=== PATIENT | male | born 1945 | race Caucasian/White ===

== ENCOUNTER 2017-09-29 12:58 | Inpatient (IN) | payer MEDICARE, BC ==
[2017-09-29 13:32] LABS: BASOPHILS 0.5 % (0-2); EOSINOPHILS 6.1 % (0-7); HEMATOCRIT 35.8 % (42.0-54.0); HEMOGLOBIN 11.3 g/dL (13.5-17.5); IMMATURE GRANULOCYTES 0.2 % (0-5); LYMPHOCYTES 19.7 % (15-50); MCH 22.9 pg (26.0-34.0); MCHC 31.6 g/dL (31.0-37.0); MCV 72.5 fL (80.0-100.0); MEAN PLATELET VOLUME 10.7 fL (7.4-10.4); NEUTROPHILS 63.5 % (40-80); RBC 4.94 10x6/uL (4.20-6.10); RDW 17.6 % (11.5-14.5); WBC 9.3 10x3/uL (4.8-10.8)
[2017-09-29 13:42] LABS: APPEARANCE CLOUDY (CLEAR); BILIRUBIN NEGATIVE (NEGATIVE); COLOR YELLOW (YELLOW); GLUCOSE 50 mg/dL (NEGATIVE); KETONE SMALL mg/dL (NEGATIVE); NITRITE NEGATIVE (NEGATIVE); PROTEIN NEGATIVE (NEGATIVE)
[2017-09-29 13:43] LABS: AMORPHOUS SEDIMENT >1+ /lpf (NONE SEEN); BACTERIA MODERATE /hpf (NONE SEEN); EPITHELIAL CELLS OCC /hpf (0-5); GRANULAR CAST OCC /lpf (NONE SEEN); MUCUS <1+ /lpf (NONE SEEN); WHITE CELLS - URINE 0-5 /hpf (0-5)
[2017-09-29 14:01] LABS: PLATELET COUNT 274 10x3/uL (130-400)
[2017-09-29 14:10] LABS: ALBUMIN 3.6 g/dL (3.4-5.0); ALKALINE PHOSPHATASE 149 U/L (46-116); ALT (SGPT) 26 U/L (10-68); BILIRUBIN - TOTAL 0.17 mg/dL (0.2-1.3); CALC OSMOLALITY 275 mosm/kg (275-300); CALCIUM 9.1 mg/dL (8.5-10.1); CARBON DIOXIDE 25.5 mmol/L (21.0-32.0); CHLORIDE - SERUM 101 mmol/L (98-107); CREATININE - SERUM 0.8 mg/dL (0.6-1.3); GLUCOSE 213 mg/dL (74-106); POTASSIUM - SERUM 4.2 mmol/L (3.5-5.1); SODIUM 136 mmol/L (136-145); UREA NITROGEN 7 mg/dL (7-18); eGFR NON AFRICAN AMERICAN > 90 mL/min (90-120)
--- NOTE | 2017-09-29 16:00 | NUR ---
RECEIVED FROM [facility] ER FROM [facility]. DX: ALTERED MENTAL STATUS WITH INCREASED BEHAVIORS, TRYING TO HIT STAFF WITH CANE. HE IS HALLUCINATING AND DELUSIONAL. HE THINKS HIS JUST HAD A BABY AND HE IS COMING TO HOSPITAL TO PICK HER UP. HE AMBULATES WITH THE ASSISTANCE OF A WALKER. WILL CONTINUE TO MONITOR.
[2017-09-29 16:14] LABS: HEMOGLOBIN A1C 6.6 % (4.8-6.0)
[2017-09-29 16:21] LABS: CHOL - HDL RATIO 1.9 ratio (2.3-4.9); LDL-HDL RATIO 0.7 ratio (1.5-3.5)
[2017-09-29] MEDS ORDERED: BAYER CHEWABLE81 MG PO (18:40)
[2017-09-29] MEDS ORDERED: XALATAN 0.0052.5 ML EACH EYE (18:41)
[2017-09-29] MEDS ORDERED: LIPITOR40 MG PO (18:45)
[2017-09-29] MEDS ORDERED: OMEPRAZOLE40 MG (18:47)
[2017-09-29] MEDS ORDERED: VITAMIN B-122500 MCG PO (18:49)
[2017-09-29] MEDS ORDERED: LISINOPRIL-HCTZ1 TA2 PO (18:50)
[2017-09-29] MEDS ORDERED: ZYRTEC10 MG PO (18:51)
[2017-09-29] MEDS ORDERED: COLACE100 MG PO (18:52)
[2017-09-29] MEDS ORDERED: COSOPT EYE DROPS5 ML EACH EYE (18:54)
[2017-09-29] MEDS ORDERED: GLUCOPHAGE500 MG PO (18:57)
[2017-09-29] MEDS ORDERED: METFORMIN HCL500 M1 PO (18:57)
[2017-09-29] MEDS ORDERED: LASIX40 MG PO (18:59)
[2017-09-29] MEDS ORDERED: ACETAMINOPHEN325 MG PO (19:00)
[2017-09-29 20:22] VITALS: BP 141/70
--- NOTE | 2017-09-29 21:00 | NUR ---
RECEIVED IN HALLWAY. WALKING AROUND UNIT. EXIT SEEKING. CALM AND COOPERATIVE WITH VITALS. ORIENTED TO UNIT. REINFORCE FALLS SAFTEY.
--- NOTE | 2017-09-29 22:10 | NUR ---
PATIENT REFUSING ADMIT ASSESSMENT AND HISTORY.
--- NOTE | 2017-09-30 06:09 | NUR ---
PATIENT CONTINUES TO REFUSE ADMIT ASSESSMENT AND HISTORY. TELLING STAFF HE IS GOING TO BUST OUT OF THIS PLACE.
[2017-09-30 08:00] VITALS: BP 154/84
[2017-09-30 11:40] VITALS: BP 154/84
--- NOTE | 2017-09-30 12:24 | NUR ---
PT REFUSED ASSESSMENT ON PREVIOUS NIGHT BUT HE DID ALLOW ME TO COMPLETE IT TODAY. ORIENTED TO PERSON ONLY. PT THINKS THAT HE IS IN REHAB AT THIS TIME. PT HAS NOT MENTIONED HIS " HAVING A BABY" SINCE THIS MORNING DURING MY ASSESSMENT. NO AGGRESSION NOTED. PT DOES PACE AROUND THE DAYROOM AND ISOLATED AWAY FROM THE OTHER PTS. ENCOURAGED PT TO ATTEND GROUPS AND EXPRESS NEEDS AND FEELINGS. PT USES A WALKER FOR AMBULATION. FALL PRECAUTIONS MAINTAINED BUT HE REFUSES TO SIT WITH SNEHA ALARM. EDUCATED ON IMPORTANCE. WILL CONTINUE TO MONITOR AND CONTINUE WITH PLAN OF CARE.
[2017-09-30 20:05] VITALS: BP 159/78
--- NOTE | 2017-09-30 20:45 | NUR ---
RECEIVED IN HALLWAY. WALKING ABOUT UNIT. ISOLATED FROM HIS PEERS AND STAFF. CALM AND COOPERATIVE WITH CARE AND ASSESSMENTS. NO SIGNS OF HALLUCINATIONS. NO SIGNS OF AGGRESSION. REDIRECT AND REOREINT NEEDED. LAYING IN BED EYS OPEN WITH MED NURSE IN HIS ROOM AT THIS TIME. CONTINUE PLAN OF CARE
--- NOTE | 2017-10-01 08:07 | PSY ---
PATIENT NAME:AMBAR FLORES MEDICAL RECORD: [id number] : 49 LOCATION:[facility] ADMISSION DATE: 09/29/17 ACCOUNT: [id number] PSYCHIATRIC EVALUATION DATE OF EVALUATION: 09/30/17 IDENTIFYING DATA: This is the first [facility] admission for this 72-year-old unmarried white male. HISTORY OF PRESENT ILLNESS: This patient was referred from [facility]. His behavior had taken a marked change for the worse and he had become increasingly agitated with paranoid symptoms and aggressiveness. He had been trying to strike staff members with his cane. He was observed to be experiencing hallucinations, most likely auditory. He also was under the delusion that his had just 2 small children. In fact, his in 2007. Because of marked change in mental status as well as aggressiveness and assaultiveness, the patient was admitted. PAST PSYCHIATRIC HISTORY: The patient does have past history of alcohol use. Beyond this, there is no previous documented psychiatric history. PAST MEDICAL HISTORY: Significant for type 2 diabetes, hypertension, GERD, and hypercholesterolemia. The patient does have bilateral dependent edema. The patient also takes Lasix 40 mg daily for that. Other ongoing medications include Lipitor, Zestoretic, cetirizine, Colace, and Glucophage. ALLERGIES: None listed. FAMILY HISTORY: Noncontributory. SOCIAL HISTORY: The patient is a [place] . As mentioned, his in 2007 and a son in 2015. The patient does have a history of alcohol abuse. He formerly worked at the [employer]. MENTAL STATUS: On exam, the patient is seated in a wheelchair. He is confused. He does realize that he is in some hospital somewhere, but he is not sure where. Remote recall shows significant deficits and confusion. Intermediate and short-term recall are severely impaired. Thought content is positive for active delusional ideation. Mood is somewhat irritable. Affect is quite brittle. Speech shows some tangentiality. 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 AXIS II: No diagnosis. AXIS III: Hypertension, hypercholesterolemia, type 2 diabetes, and GERD. AXIS IV: Severe. AXIS V: 36. PLAN: 1. The patient is admitted for further medical and psychiatric workup. 2. Diet and activities as tolerated. 3. Daily supportive therapy. TRANSINT:[id number] Voice Confirmation ID: [id number] DOCUMENT ID: [id number] EVELYN CALDWELL III, MD at 0807 CC: [id number] DICTATION DATE: 09/30/17 1142 TANK CAR INSPECTOR: 09/30/17 1230 ADM IN [address] [place] [address]
--- NOTE | 2017-10-01 11:04 | NUR ---
ORIENTED TO PERSON ONLY. PT REQUIRES FREQUENT REDIRECTION TO CURRENT ENVIRONMENT. NO AGGRESSION NOTED. MEDICAITONS GIVEN ORDERED. FALL PRECAUTIONS MAINTAINED. WILL CONTINUE TO MONITOR AND CONTINUE WITH PLAN OF CARE.
[2017-10-01 11:59] VITALS: BP 108/55
--- NOTE | 2017-10-01 19:39 | NUR ---
RECEIVED IN DINING ROOM. SITTING ALONE AT TABLE. PATIENT ISOLATES HIMSELF FROM EVERYONE ELSE. CALM AND COOPERATIVE WITH CARE AND ASSESSMENT. NO SIGNS OF HALLUCINATIONS. NO SIGNS OF AGGRESSION. ENCOURAGE TO EXPRESS NEEDS. PATIENT CONTINUES TO SIT IN DINING ROOM AT TABLE. CONTINUE PLAN OF CARE.
[2017-10-01 22:00] VITALS: BP 148/76
--- NOTE | 2017-10-01 23:04 | NUR ---
PATIENT REFUSED TO COME TO HIS ROOM FROM DINING ROOM. STATED THAT THE PRESIDENT AND HIS WERE COMING TO GET HIM AND WERE ALMOST HERE. REDIRECTED AND REORIENTED PATIENT. PATIENT WAS RESISTIVE TO REDIRECTION AT FIRST BUT AFTER CONTINUED REDIRECTION PATIENT WENT TO HIS ROOM AND LAYED IN BED. STATED HE WILL WAIT FOR THE PRESIDENT AND HIS WHILE HE LAYS IN BED. PATIENT RESTING IN BED WITH EYES CLOSED AT THIS TIME. CONTINUE PLAN OF CARE.
--- NOTE | 2017-10-02 07:46 | NUR ---
RESTING IN BED WITH EYES OPEN. CALM AND COOPERATIVE WITH CARE AND ASSESSMENTS. NO SIGNS OF AGGRESSION. NO SIGNS OF HALLUCINATIONS. NO DELUSIONAL STATEMENTS MADE THIS AM. ISOLATING. CALM AND COOPERATIVE WITH CARE AND ASSESSMENTS. NO SIGNS OF AGGRESSION. CONTINUE TO SIT QUIETLY IN BEDROOM. CONTINUE PLAN OF CARE
--- NOTE | 2017-10-02 10:07 | PN ---
PATIENT:AMBAR FLORES MEDICAL RECORD: [id number] LOCATION:[facility] ADMISSION DATE: 09/29/17 PROGRESS NOTE DATE OF SERVICE: 10/01/2017 SUBJECTIVE: No new complaint noted. OBJECTIVE: The patient remains oriented only to person. He is quite confused. He believes that he is in [place]. Sleep is poor. On exam, mood is slightly irritable. Affect is shallow. Speech is tangential. Exhibits delusional ideation due to sensorium deficits. Sensorium is unchanged. ASSESSMENT: No change in diagnosis. PLAN: 1. Continue current medications. 2. Continue supportive therapy. TRANSINT:[id number] Voice Confirmation ID: [id number] DOCUMENT ID: [id number] EVELYN CALDWELL III, MD at 1007 CC: [id number] DICTATION DATE: 10/01/17 1147 FOREST BOTANY INSTRUCTOR: 10/01/17 1203 ADM IN [address] [place] [address]
[2017-10-02 10:47] VITALS: BP 140/72
[2017-10-02 19:30] VITALS: BP 147/85
--- NOTE | 2017-10-03 05:03 | NUR ---
B) Patient alert and oriented to self, delusional at times, grandiouse at times I) Administered scheduled medications, monitored for safety R) medication compliant, resting quietly in bed P) Continue plan of care
[2017-10-03 08:00] VITALS: BP 126/69
--- NOTE | 2017-10-03 08:05 | NUR ---
B) PATIENT IS EXTREMELY CONFUSED. HE IS DELUSIONAL, HE BELIEVES HE IS REHAB AND HE IS LOOKING FOR HIS . HAD TO ASSIST AND DIRECT PATIENT TO WASH HIS FACE AND COMB HIS HAIR, HE SAID "I DON'T NORMALLY DO THAT" PATIENT USES A WALKER TO AMBULATE. I) PROVIDE PRESCRIBED MEDS. R) PATIENT DID LOOK AROUND TO TRY TO FIND HIS . HE IS NOT . P) CONTINUE POC.
[2017-10-03 19:28] VITALS: BP 102/68
--- NOTE | 2017-10-04 03:16 | NUR ---
B) Patient is alert and oriented to self and being in a hospital, very confused and delusional, thinks he has and small children I) Administered scheduled medication, monitored for safety R) Medication compliant, keeps to himself away from other patients, P) Continue plan of care.
[2017-10-04 07:00] VITALS: BP 122/74
--- NOTE | 2017-10-04 16:04 | NUR ---
ORIENTED TO SELF AND HOSPITAL ONLY.WAS HESITANT ABOUT LETTING THIS NURSE LISTEN TO HIS CHEST,STATED"ITs OK SEVERAL TIMES BEFORE HE LET ME.AMBULATES WITH WALKER.COMPLIANT WITH MEDS.WILL CONTINUE WITH PLAN OF CARE.MONITOR FOR CHANGES AND SAFETY.
--- NOTE | 2017-10-04 20:32 | NUR ---
RECEIVED IN HALLWAY STANDING AT NURSES STATION. SOCIALIZING WITH THIS NURSE. CALM AND COOPERATIVE WITH CARE AND ASSESSMENTS BUT REFUSED B/P. NO SIGNS OF HALLUCINATIONS. NO SIGNS OF AGGRESSION. ENCOURAGE TO TAKE PM MEDS. REFUSED ALL PM MEDS. REDIRECTED AND REORIENTED. CONTINUED TO STATE HE IS TAKING TOO MANY MEDS AND REFUSES TO TAKE PM MEDS. RESTING IN BED EYES OPEN AT THIS TIME. CONTINUE PLAN OF CARE.
[2017-10-05 08:17] VITALS: BP 117/71
--- NOTE | 2017-10-05 09:39 | PN ---
PATIENT:AMBAR FLORES MEDICAL RECORD: [id number] LOCATION:[facility] ADMISSION DATE: 09/29/17 PROGRESS NOTE DATE OF SERVICE: 10/02/2017 SUBJECTIVE: No new complaint. OBJECTIVE: Staff report the patient is doing well. He has not shown any behavioral problems. He remains quite confused. He is disoriented as to place as well as to time. He is participating more in group activities. On exam, mood is euthymic. Affect bland and constricted. Speech is terse. Content of thought is positive for recent delusional ideation. Sensorium unchanged. ASSESSMENT: No change in diagnosis. PLAN: 1. Maintain current medication. 2. Continue supportive therapy. TRANSINT:[id number] Voice Confirmation ID: [id number] DOCUMENT ID: [id number] EVELYN CALDWELL III, MD at 0939 CC: [id number] DICTATION DATE: 10/02/17 111 CULTURIST: 10/02/17 1132 ADM IN [address] [place] [address]
--- NOTE | 2017-10-05 11:30 | NUR ---
ORIENTED TO SELF AND HOSPITAL ONLY. COOPERATIVE WITH ASSESSMENT AND CARE. COMPLIANT WITH TAKING PRESCRIBED MEDICATIONS. AMBULATES WITH A WALKER. MONITOR FOR SAFETY AND CHANGES. CONTINUE PLAN OF CARE.
[2017-10-05 19:21] VITALS: BP 144/72
--- NOTE | 2017-10-05 19:42 | NUR ---
RECEIVED IN BEDROOM. LAYING ON BED WITH EYES OPEN. CALM AND COOPERATIVE WITH CARE AND ASSESSMENTS. NO SIGNS OF HALLUCINATIONS. NO SIGNS OF AGGRESSION. REDIRECT AND REORIENT NEEDED. ENCOURAGE TO EXPRESS NEEDS. CONTINUES TO REST QUIETLY IN HIS BEDROOM. CONTINUE PLAN OF CARE
--- NOTE | 2017-10-06 06:06 | PN ---
PATIENT:AMBAR FLORES MEDICAL RECORD: [id number] LOCATION:[facility] ADMISSION DATE: 09/29/17 PROGRESS NOTE DATE OF SERVICE: 10/05/2017 SUBJECTIVE: No new complaint. OBJECTIVE: The patient has done well over the weekend and no new problems have surfaced. On exam, mood is euthymic. Affect is fairly bland. Speech is tangential. Content of thought is negative for overt psychosis. Sensorium unchanged. ASSESSMENT: No change in diagnosis. PLAN: 1. Continue current medications. 2. Continue supportive therapy. TRANSINT:[id number] Voice Confirmation ID: [id number] DOCUMENT ID: [id number] EVELYN CALDWELL III, MD at 0606 CC: [id number] DICTATION DATE: 10/05/17 1308 MERCHANT PATROLLER: 10/05/17 1322 ADM IN [facility] [address] [place] [address]
--- NOTE | 2017-10-06 08:34 | NUR ---
SARA SPOKE WITH PT'S SON BRAEDEN ABOUT HIS UPCOMING DISCHARGE TOMORROW TO [place] AND STATED THEY MIGHT WANT TO MOVE HIM TO THE MEMORY CARE UNIT DUE TO HIS DISEASE PROGRESSION. BRAEDEN VERBALIZED UNDERSTANDING OF PT'S CONDITION AND DISCUSSION.
[2017-10-06] MEDS ORDERED: HCTZ25 MG PO (10:48)
[2017-10-06] MEDS ORDERED: LISINOPRIL10 MG PO (10:48)
[2017-10-06] MEDS ORDERED: VITAMIN D5000 UNIT PO (10:50)
[2017-10-06 11:08] VITALS: BP 143/74
--- NOTE | 2017-10-06 13:48 | NUR ---
Nutrition Follow Up: Chart reviewed. Pt is eating 58% meal avg on a regular ISRAEL diet. +BM 10/05/17. Labs reviewed. Meds noted including Lasix. Rec continue current diet. RD following.
[2017-10-06 20:06] VITALS: BP 121/65
--- NOTE | 2017-10-06 21:34 | NUR ---
RECEIVED IN BEDROOM. RESTING IN BED WITH EYES CLOSED. RESPONDS TO VOICE. COOPERATIVE WITH VITALS AND ASSESSMENTS BUT REFUSED ALL PM MEDS. STATING "I AMD DOING FINE WITH THE MEDS I AM TAKING. I AM NOT TAKING ANYMORE MEDS." CONTINUES TO REFUSE A SHOWER. REDIRECT AND REORIENT. REINFORCE THE NEED TO TAKE MEDS ORDERED AND TO TAKE A SHOWER. RESTING IN BED EYES CLOSED AT THIS TIME. CONTINUE PLAN OF CARE
--- NOTE | 2017-10-07 05:14 | PN ---
PATIENT:AMBAR FLORES MEDICAL RECORD: [id number] LOCATION:[facility] ADMISSION DATE: 09/29/17 PROGRESS NOTE DATE OF SERVICE: 10/06/2017 SUBJECTIVE: No new complaint. OBJECTIVE: The patient continues to do well. No further evidence of suicidality or agitation. On exam, mood is euthymic, affect is pleasant. Speech is somewhat terse. Content of thought is negative for overt psychosis. Sensorium unchanged. ASSESSMENT: No change in diagnosis. PLAN: 1. Continue all current medications. 2. Anticipate discharge tomorrow. TRANSINT:[id number] Voice Confirmation ID: [id number] DOCUMENT ID: [id number] EVELYN CALDWELL III, MD at 0514 CC: [id number] DICTATION DATE: 10/06/17 1039 HOSPICE CLINICAL MANAGER: 10/06/17 1120 ADM IN [address] [place] [address]
[2017-10-07 08:00] VITALS: BP 115/72
--- NOTE | 2017-10-07 11:00 | NUR ---
CALM AND COOPERATIVE WITH CARE AND ASSESSMENT. PRESCRIBED MEDICATIONS GIVEN AND COMPLIANT WITH TAKING. FALL PRECAUTIONS MAINTAINED. WILL CONTINUE TO MONITOR. PATIENT IS SET TO DISCHARGE TODAY. ALL PAPERWORK REVIEWED AND FAXED TO [facility].
--- NOTE | 2017-10-08 08:22 | DS ---
PATIENT:AMBAR FLORES :49 MEDICAL RECORD: [id number] DISCHARGE SUMMARY ADMISSION DATE: 09/29/17 DISCHARGE DATE: 10/07/17 DATE OF ADMISSION: 09/29/2017 DATE OF DISCHARGE: 10/07/2017 HISTORY OF PRESENT ILLNESS: First Longterm admission for this 72-year-old unmarried white male. He was transferred from [facility]. He had been exhibiting delusional ideation and aggressiveness. He had been upset with staff because he claimed that his was about to have a baby. His had actually almost 10 years ago. Because of worsening cognitive status and agitation, the patient was admitted. For further details, please see previously dictated history. COURSE IN THE HOSPITAL: The patient was seen in consultation by Dr. Traylor. He noted the presence of hypertension, gastroesophageal reflux disease, vitamin D deficiency, glaucoma, vitamin B12 deficiency, and anemia. From a medication standpoint, the patient was treated very conservatively. It was elected not to put him on routine antipsychotics. He responded well to this approach and showed a good resolution of his agitation and delusional ideation. He also responded well to p.r.n. Ativan. By the time of discharge, the patient was felt to be stable and ready for transfer to the memory care unit at [place]. FINAL DIAGNOSES: AXIS I: Vascular dementia with psychotic features - resolving. AXIS II: No diagnosis. AXIS III: Hypertension, hypercholesterolemia, type 2 diabetes, gastroesophageal reflux disease. AXIS IV: Moderate. AXIS V: 44. PLAN: 1. The patient is discharged on current medications. 2. Diet and activities as tolerated. 3. Follow up with primary care physician. TRANSINT:[id number] Voice Confirmation ID: [id number] DOCUMENT ID: [id number] EVELYN CALDWELL III, MD at 0822 CC: [id number] DICTATION DATE: 10/07/17 1121 VALUE ENGINEER: 10/07/17 1352 DIS IN 10/07/17 [id number] [place] [address]
== END 2017-10-07 18:07 | disposition home or self-care (01) | DRG 57 ==
LOC: EDBD 12:58 → D.ER 12:58 → D.PSYCH 15:29
PROVIDERS: Emergency Medicine; ADMIT Psychiatry & Neurology Psychiatry
DX: G30.9 Alzheimer's disease, unspecified (principal); F02.81 Dementia in other diseases classified elsewhere, unspecified severity, with behavioral disturbance; F01.51 Vascular dementia, unspecified severity, with behavioral disturbance; I10 Essential (primary) hypertension; E78.00 Pure hypercholesterolemia, unspecified; E78.5 Hyperlipidemia, unspecified; D64.9 Anemia, unspecified; E11.9 Type 2 diabetes mellitus without complications; K21.9 Gastro-esophageal reflux disease without esophagitis; E53.8 Deficiency of other specified B group vitamins; E55.9 Vitamin D deficiency, unspecified; H40.9 Unspecified glaucoma; I25.10 Atherosclerotic heart disease of native coronary artery without angina pectoris; Z95.1 Presence of aortocoronary bypass graft

== ENCOUNTER 2017-11-06 18:09 | Inpatient (IN) | payer MEDICARE, BC ==
[~2017-11-06] VITALS: Ht 165.1 cm; Wt 88.2 kg
--- NOTE | ~2017-11-06 | PN ---
PATIENT:AMBAR FLORES MEDICAL RECORD: [id number] LOCATION:[facility] ADMISSION DATE: 11/06/17 PROGRESS NOTE DATE OF SERVICE: 11/14/2017 SUBJECTIVE: The patient's case was discussed with staff. He has no new complaint. OBJECTIVE: The patient is in good behavioral control with limited insight about his condition. He tolerates his medicines well. He continues to be delusional and he is talking to people not present. The patient continues to not eat adequately. Efforts to encourage him to do so are limited. I believe he is not eating because he is delusional and in fact he does say that president, Bonjulisa told him not to eat his food. ASSESSMENT: No change in diagnoses. PLAN: The patient will be maintained on his current antipsychotic medication, which I may need to increase in a day or two. It really has not had an opportunity to do much. I am also going to start him on Namenda for its memory enhancing properties. TRANSINT:[id number] Voice Confirmation ID: [id number] DOCUMENT ID: [id number] WYATT VELASQUEZ MD at 1105 CC: [id number] DICTATION DATE: 11/14/17 0952 WASTE CHOPPER: 11/14/17 1216 ADM IN [address] [place] [address]
--- NOTE | ~2017-11-06 | PN ---
PATIENT:AMBAR FLORES MEDICAL RECORD: [id number] LOCATION:[facility] ADMISSION DATE: 11/06/17 PROGRESS NOTE DATE OF SERVICE: 11/15/2017 SUBJECTIVE: The patient's case was discussed with staff. He has no new complaint. OBJECTIVE: The patient is in good behavioral control with poor insight about his condition. He tolerates his medicines well. ASSESSMENT: No change in diagnoses. PLAN: The patient will be maintained on current medications. He continues to not eat very well. I have reviewed his current medications and he is taking Megace, it just has not been effective or has not been effective yet. TRANSINT:[id number] Voice Confirmation ID: [id number] DOCUMENT ID: [id number] WYATT VELASQUEZ MD at 1156 CC: [id number] DICTATION DATE: 11/15/17 1204 ELECTRIC ORGAN CHECKER: 11/15/17 1236 ADM IN [facility] [address] [place] [address]
--- NOTE | ~2017-11-06 | PN ---
PATIENT:AMBAR FLORES MEDICAL RECORD: [id number] LOCATION:[facility] ADMISSION DATE: 11/06/17 PROGRESS NOTE DATE OF SERVICE: 11/12/2017 SUBJECTIVE: No new complaint. OBJECTIVE: The patient remains actively psychotic. He is delusional. Speech is rambling. He has been intermittently noncompliant with medication. PHYSICAL EXAMINATION: On exam, mood is euthymic. Affect is very distant and peculiar. Speech is rambling. Content of thought is strongly positive for delusional ideation. Sensorium shows no change. ASSESSMENT: No change in diagnosis. PLAN: 1. We will continue current medications. 2. Continue supportive therapy. TRANSINT:[id number] Voice Confirmation ID: [id number] DOCUMENT ID: [id number] EVELYN CALDWELL III, MD at 0826 CC: [id number] DICTATION DATE: 11/12/17 1132 TRAIN OPERATOR: 11/12/17 1154 ADM IN [facility] [address] [place] [address]
--- NOTE | ~2017-11-06 | PN ---
PATIENT:AMBAR FLORES MEDICAL RECORD: [id number] LOCATION:[facility] ADMISSION DATE: 11/06/17 PROGRESS NOTE DATE OF SERVICE: 11/21/2017 SUBJECTIVE: The patient's case was discussed with staff. He has no new complaint. OBJECTIVE: The patient continues to talk to himself, but he is denying any psychotic symptoms. He has severe impairment of his short-term memory and at least moderate impairment of his long-term memory. ASSESSMENT: No change in diagnoses. PLAN: The patient's Trilafon was increased yesterday. I plan to keep it at the same dose today. His long-term prognosis is guarded. TRANSINT:[id number] Voice Confirmation ID: [id number] DOCUMENT ID: [id number] WYATT VELASQUEZ MD at 1101 CC: [id number] DICTATION DATE: 11/21/17 1211 GLASS RIBBON MACHINE OPERATOR ASSISTANT: 11/21/17 1236 ADM IN [address] [place] [id number]
--- NOTE | ~2017-11-06 | PN ---
PATIENT:AMBAR FLORES MEDICAL RECORD: [id number] LOCATION:[facility] ADMISSION DATE: 11/06/17 PROGRESS NOTE DATE OF SERVICE: 11/10/2017 SUBJECTIVE: No new complaint is noted. OBJECTIVE: The patient continues to be very delusional. He states that he is expecting Pedro Gates to come pick him up in his [place] today. On exam, the patient's mood is elevated. Affect is expansive. Speech is pressured and rambling. Content of thought is positive for both auditory hallucinations and grandiose delusions. Sensorium is unchanged. ASSESSMENT: No change in diagnosis. PLAN: 1. The patient has been started on neuroleptics. We will continue these. 2. Continue other medications and supportive therapy. TRANSINT:[id number] Voice Confirmation ID: [id number] DOCUMENT ID: [id number] EVELYN CALDWELL III, MD at 1011 CC: [id number] DICTATION DATE: 11/10/17 1040 PRIVATE WATCHMAN: 11/10/17 1111 ADM IN [facility] [address] [place] [address]
--- NOTE | ~2017-11-06 | PN ---
PATIENT:AMBAR FLORES MEDICAL RECORD: [id number] LOCATION:[facility] ADMISSION DATE: 11/06/17 PROGRESS NOTE DATE OF SERVICE: 11/24/2017 SUBJECTIVE: No new complaint. OBJECTIVE: Over the last week, the patient has shown improvement. He continues to actively hallucinate and frequently appears to be carrying on a conversation with an unseen individual. However, he is much more cooperative, has not been aggressive at all. On exam, the patient is very pleasant. He recalls the examiner. Affect is bland. Speech continues to be somewhat rambling. Content of thought remains positive for active hallucinations, both auditory and probably visual. Sensorium testing reveals the patient is oriented to person and to place, but not as to time. All phases of memory remain affected. ASSESSMENT: No change in diagnosis. PLAN: 1. Continue current medications. 2. Continue supportive therapy. TRANSINT:[id number] Voice Confirmation ID: [id number] DOCUMENT ID: [id number] EVELYN CALDWELL III, MD at 1033 CC: [id number] DICTATION DATE: 11/24/17 1105 DEPALLETIZER OPERATOR: 11/24/17 1128 ADM IN [facility] [address] [place] [address]
--- NOTE | ~2017-11-06 | PN ---
PATIENT:AMBAR FLORES MEDICAL RECORD: [id number] LOCATION:[facility] ADMISSION DATE: 11/06/17 PROGRESS NOTE DATE OF SERVICE: 11/11/2017 SUBJECTIVE: No new complaint. OBJECTIVE: The patient has been showing poor oral intake and will need to be started on Megace. He remains actively psychotic, hallucinating much of the day. Aside from this, he is fairly cooperative. On exam, mood is euthymic, affect is very distant. Speech is tangential. Content of thought is positive for active auditory hallucinations. Sensorium is unchanged. ASSESSMENT: No change in diagnosis. PLAN: 1. Change Geodon to 20 mg b.i.d. 2. Add Megace 40 mg b.i.d. 3. Continue all other medications and supportive therapy. TRANSINT:[id number] Voice Confirmation ID: [id number] DOCUMENT ID: [id number] EVELYN CALDWELL III, MD at 1101 CC: [id number] DICTATION DATE: 11/11/17 1058 CERAMIC TILE INSTALLER: 11/11/17 1145 ADM IN [address] [place] [address]
--- NOTE | ~2017-11-06 | PN ---
PATIENT:AMBAR FLORES MEDICAL RECORD: [id number] LOCATION:[facility] ADMISSION DATE: 11/06/17 PROGRESS NOTE DATE OF SERVICE: 11/13/2017 SUBJECTIVE: The patient's case was discussed with staff. He has no new complaint. OBJECTIVE: The patient is in good behavioral control with poor insight about his condition. He tolerates his medicines well. He is delusional. He believes that the president has told him not to take his medicines or to use his walker. ASSESSMENT: No change in diagnoses. PLAN: Current medicines have been reviewed. I am going to continue him on the Geodon for its antipsychotic effects. His long-term prognosis is guarded. Supportive and educational interventions were made. TRANSINT:[id number] Voice Confirmation ID: [id number] DOCUMENT ID: [id number] WYATT VELASQUEZ MD at 0944 CC: [id number] DICTATION DATE: 11/13/17 1204 RESIDENTIAL INSTALLER: 11/13/17 1241 ADM IN [id number] [place] [address]
--- NOTE | ~2017-11-06 | DS ---
PATIENT:AMBAR FLORES :49 MEDICAL RECORD: [id number] DISCHARGE SUMMARY ADMISSION DATE: 11/06/17 DISCHARGE DATE: 11/27/17 DATE OF ADMISSION: 11/06/2017 DATE OF DISCHARGE: 11/27/2017 HISTORY: Second recent [facility] hospital admission for this 72-year-old white male. The patient had been admitted in September of last year, he had become increasingly paranoid and combative and was experiencing auditory hallucinations. On this admission, the patient had been begun exhibiting visual hallucinations as well. He had exhibited confused and rambling speech and was difficult to redirect. PAST MEDICAL HISTORY: Documented in the initial workup. For further details, see the initial workup. COURSE IN THE HOSPITAL: The patient was seen in consultation with Dr. Traylor. Dr. Traylor noted the presence of vitamin D deficiency, hypertension, glaucoma, constipation and hyperlipidemia as well as past history of coronary artery disease. The patient continued to show fairly significant psychotic symptoms. He had conversations with imaginary people. Accordingly, the patient was started on perphenazine and dosage was stabilized at 2 mg in the morning and 4 mg in the evening. He was maintained on Namenda 5 mg twice a day, Pepcid 20 mg daily, vitamin D supplements, lisinopril 10 mg daily, hydrochlorothiazide 12.5 mg daily, Colace, Gaye, Glucophage 500 mg twice a day, Xalatan eyedrops, and Lipitor 40 mg at bedtime. Through the hospitalization, the patient showed very gradual improvement in his psychotic symptoms. By the time of discharge, he was not as floridly delusional and was returned to [place]. 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 AXIS II: No diagnosis. AXIS III: Hypertension, hypercholesterolemia, type 2 diabetes, GERD. AXIS IV: Moderate. AXIS V: 40. PLAN: 1. The patient is discharged on current medications. 2. Diet and activities as tolerated. 3. Follow up through residential physician. TRANSINT:[id number] Voice Confirmation ID: [id number] DOCUMENT ID: [id number] DISCHARGE SUMMARY REPORT [id number] AMBAR FLORES III, EVELYN Martino MD at 0503 CC: [id number] DICTATION DATE: 11/27/17 113 DIRECTOR OF DIVERSITY AND INCLUSION: 11/27/17 1533 DIS IN 11/27/17 [facility] [address] [place] [address]
--- NOTE | ~2017-11-06 | PN ---
PATIENT:AMBAR FLORES MEDICAL RECORD: [id number] LOCATION:[facility] ADMISSION DATE: 11/06/17 PROGRESS NOTE DATE OF SERVICE: 11/25/2017 SUBJECTIVE: No new complaint. OBJECTIVE: The patient continues to be fairly cooperative with staff. He is able to be redirected. He continues to exhibit florid delusions as before. Placement is pending as [facility] will not take him back. On exam, mood is euthymic. Affect is slightly expansive. Speech is tangential. Content of thought is positive for delusions as noted above. Sensorium unchanged. ASSESSMENT: No change in diagnosis. PLAN: 1. Continue all current medications. 2. Continue supportive therapy. TRANSINT:[id number] Voice Confirmation ID: [id number] DOCUMENT ID: [id number] EVELYN CALDWELL III, MD at 0621 CC: [id number] DICTATION DATE: 11/25/17 1119 INDEPENDENT DISTRIBUTOR: 11/25/17 1152 ADM IN [id number] [place] [address]
--- NOTE | ~2017-11-06 | PN ---
PATIENT:AMBAR FLORES MEDICAL RECORD: [id number] LOCATION:[facility] M[facility] ADMISSION DATE: 11/06/17 PROGRESS NOTE DATE OF SERVICE: 11/09/2017 SUBJECTIVE: No coherent complaint. OBJECTIVE: The patient continues to exhibit auditory hallucinations and rambling speech. He is quite confused. His orientation is limited to self. He is not sleeping well. PHYSICAL EXAMINATION: On exam, the patient's mood is fairly pleasant and affect is bland, but speech is rambling and tangential. Content of thought as noted is positive for auditory hallucinations. The patient frequently talks to unseen people. He is oriented only to person with severe global memory impairment. ASSESSMENT: No change in diagnosis. PLAN: 1. It is possible that his placement may have to be changed considering the severity of his dementia. 2. We will continue current medications for the moment with the exception of perhaps adding a hypnotic. 3. Continue supportive therapy. TRANSINT:[id number] Voice Confirmation ID: [id number] DOCUMENT ID: [id number] EVELYN CALDWELL III, MD at 1019 CC: [id number] DICTATION DATE: 11/09/17 1145 CRYSTAL MOUNTER: 11/09/17 1204 ADM IN [facility] [address] [place] [address]
--- NOTE | ~2017-11-06 | PN ---
PATIENT:AMBAR FLORES MEDICAL RECORD: [id number] LOCATION:[facility] ADMISSION DATE: 11/06/17 PROGRESS NOTE DATE OF SERVICE: 11/19/2017 SUBJECTIVE: The patient's case was discussed with staff. He has no new complaint. OBJECTIVE: The patient is in good behavioral control with limited insight about his condition. He generally tolerates his medicines well. ASSESSMENT: No change in diagnoses. PLAN: Brief supportive and educational interventions were made. The patient is still having some hallucinations, but he is certainly tolerating his medications well and the hallucinations do appear to be better. TRANSINT:[id number] Voice Confirmation ID: [id number] DOCUMENT ID: [id number] WYATT VELASQUEZ MD at 1303 CC: [id number] DICTATION DATE: 11/19/17 1352 SOFT WATER MECHANIC: 11/19/17 1408 ADM IN [facility] [address] [place] [address]
--- NOTE | ~2017-11-06 | PSY ---
PATIENT NAME:AMBAR FLORES MEDICAL RECORD: [id number] : 49 LOCATION:BEATA Cantrell ADMISSION DATE: 11/06/17 ACCOUNT: [id number] PSYCHIATRIC EVALUATION DATE OF EVALUATION: 11/07/17 IDENTIFYING DATA: This is the second recent [facility] admission for this 72-year-old white male. HISTORY OF PRESENT ILLNESS: This patient was admitted just over 1 month ago from [facility]. He had become increasingly paranoid and aggressive and had become agitated and combative with staff members. He was experiencing active auditory hallucinations as well. The patient was treated and showed considerable improvement and sent back to [facility], but returns now with similar symptoms. The patient is extremely confused, exhibits rambling speech, and is difficult to redirect. Because of recurrence and worsening of psychotic symptoms, the patient is admitted. PAST MEDICAL HISTORY: Does have a past history of alcohol use. Also, history of type 2 diabetes, hypertension, GERD, and hypercholesterolemia. ALLERGIES: None listed. FAMILY HISTORY: Noncontributory. SOCIAL HISTORY: The patient's in 2007 and 1 son in 2015. He does have another son that is living. He formerly worked in the [employer] service. He is a [place] . MENTAL STATUS: On interview, the patient is very confused. Speech is rambling and disjointed. Affect is brittle. Mood is agitated and anxious. Content of thought is positive for delusional ideation and active auditory hallucinations. On sensorium testing, the patient is oriented to person, but not as to place or time. DIAGNOSTIC IMPRESSION: AXIS I: Vascular dementia with psychotic features, alcoholism, by history. AXIS II: No diagnosis. AXIS III: Hypertension, hypercholesterolemia, type 2 diabetes, GERD. AXIS IV: Severe. AXIS V: 34. PLAN: 1. The patient is readmitted for further medical and psychiatric workup. 2. Medication revision as indicated. 3. Daily supportive therapy. TRANSINT:[id number] Voice Confirmation ID: [id number] DOCUMENT ID: [id number] EVELYN CALDWELL III, MD at 1108 CC: [id number] DICTATION DATE: 11/07/17 1033 MARINE RAILWAY OPERATOR: 11/07/17 1053 ADM IN [address] [place] [address]
--- NOTE | ~2017-11-06 | PN ---
PATIENT:AMBAR FLORES MEDICAL RECORD: [id number] LOCATION:[facility] Mclaughlin ADMISSION DATE: 11/06/17 PROGRESS NOTE DATE OF SERVICE: 11/17/2017 SUBJECTIVE: The patient's case was discussed with staff. He has no new complaint. OBJECTIVE: The patient is talking to himself and not eating properly, saying that "Pedro Gates told him not to eat." ASSESSMENT: No change in diagnoses. PLAN: Supportive and educational interventions were made. The patient's medications were reviewed. Clearly, the Geodon is not helping. I am going to discontinue it and start him on Trilafon for its antipsychotic effect. His prognosis is guarded. TRANSINT:[id number] Voice Confirmation ID: [id number] DOCUMENT ID: [id number] WYATT VELASQUEZ MD at 1317 CC: [id number] DICTATION DATE: 11/17/17 1221 PHYSIOGNOMIST: 11/17/17 1233 ADM IN [facility] [address] [place] [address]
--- NOTE | ~2017-11-06 | PN ---
PATIENT:AMBAR FLORES MEDICAL RECORD: [id number] LOCATION:[facility] Mclaughlin ADMISSION DATE: 11/06/17 PROGRESS NOTE DATE OF SERVICE: 11/18/2017 SUBJECTIVE: The patient's case was discussed with staff. He has no new complaint. OBJECTIVE: The patient denies intent to harm himself or others. He tolerates his medicines well. He continues to have active hallucinations. ASSESSMENT: No change in diagnosis. PLAN: Current medicines have been reviewed and will be maintained. Long-term prognosis is guarded. TRANSINT:[id number] Voice Confirmation ID: [id number] DOCUMENT ID: [id number] WYATT VELASQUEZ MD at 1322 CC: [id number] DICTATION DATE: 11/18/17 1327 WIRE WINDING MACHINE OPERATOR: 11/18/17 1501 ADM IN [facility] [address] [place] [address]
--- NOTE | ~2017-11-06 | PN ---
PATIENT:AMBAR FLORES MEDICAL RECORD: [id number] LOCATION:BE[facility] Mclaughlin ADMISSION DATE: 11/06/17 PROGRESS NOTE DATE OF SERVICE: 11/26/2017 SUBJECTIVE: No new complaint. OBJECTIVE: Representatives from [facility] came to assess this patient yesterday and evidently have now decided to allow him to return there, which is excellent news. Arrangements will be made for discharge tomorrow morning. On exam, mood is euthymic. Affect still somewhat expansive. Speech is tangential. Content of thought still shows moderate delusional ideation. Sensorium is unchanged. ASSESSMENT: No change in diagnosis. PLAN: 1. Continue all current medications. 2. Anticipate discharge tomorrow. TRANSINT:[id number] Voice Confirmation ID: [id number] DOCUMENT ID: [id number] EVELYN CALDWELL III, MD at 0601 CC: [id number] DICTATION DATE: 11/26/17 1221 DIABETES EDUCATOR: 11/26/17 1309 ADM IN [id number] [place] [address]
--- NOTE | ~2017-11-06 | PN ---
PATIENT:AMBAR FLORES MEDICAL RECORD: [id number] LOCATION:BE[facility] Mclaughlin ADMISSION DATE: 11/06/17 PROGRESS NOTE DATE OF SERVICE: 11/23/2017 SUBJECTIVE: The patient's case was discussed with staff. He has no new complaint. OBJECTIVE: The patient is in good behavioral control with limited insight about his condition. He generally tolerates his medicines well. ASSESSMENT: No change in diagnoses. PLAN: The patient remained psychotic and believes that Pedro Gates is going to come and see him today. He is talking to himself, but although this is much less intense than it previously has been. I think at this point for further increases in his antipsychotic medication with tip of the scale regarding risk and benefit in an unfavorable manner. TRANSINT:[id number] Voice Confirmation ID: [id number] DOCUMENT ID: [id number] WYATT VELASQUEZ MD at 1457 CC: [id number] DICTATION DATE: 11/23/17 1108 TITLE CLOSER: 11/23/17 1241 ADM IN [place] [id number] [place] [address]
--- NOTE | ~2017-11-06 | PN ---
PATIENT:AMBAR FLORES MEDICAL RECORD: [id number] LOCATION:JERZYJanna [facility]Can ADMISSION DATE: 11/06/17 PROGRESS NOTE DATE OF SERVICE: 11/20/2017 SUBJECTIVE: The patient's case was discussed with the staff. He has no new complaint. OBJECTIVE: The patient is somewhat better. He is talking to himself less than he previously was. Today, he told me that president Kody has bought him 4 pairs of socks. Although, he is still delusional, he certainly is much less agitated about things. His long-term prognosis is guarded. I am going to change him to a total of 6 mg of Trilafon daily. TRANSINT:[id number] Voice Confirmation ID: [id number] DOCUMENT ID: [id number] WYATT VELASQUEZ MD at 1204 CC: [id number] DICTATION DATE: 11/20/17 1305 ENVELOPE FOLDER: 11/20/17 1322 ADM IN [place] [address] [place] [address]
[~2017-11-06 18:09] MED LIST: ACETAMINOPHEN325 MG PO; BAYER CHEWABLE81 MG PO; COLACE100 MG PO; COSOPT EYE DROPS5 ML EACH EYE; GLUCOPHAGE500 MG PO; HCTZ25 MG PO; LASIX40 MG PO; LIPITOR40 MG PO; LISINOPRIL-HCTZ1 TA2 PO; LISINOPRIL10 MG PO; METFORMIN HCL500 M1 PO; OMEPRAZOLE40 MG; VITAMIN B-122500 MCG PO; VITAMIN D5000 UNIT PO; XALATAN 0.0052.5 ML EACH EYE; ZYRTEC10 MG PO
[2017-11-06] MEDS ORDERED: ZESTORETIC 10/11 TAB PO (20:06)
[2017-11-06] MEDS ORDERED: ZOLOFT25 MG PO (20:06)
[2017-11-07 03:29] VITALS: BP 134/72; BMI 32.5
[2017-11-07 07:00] VITALS: BP 140/66
[2017-11-07 10:20] LABS: BASOPHILS 0.2 % (0-2); EOSINOPHILS 1.5 % (0-7); HEMATOCRIT 36.7 % (42.0-54.0); HEMOGLOBIN 11.8 g/dL (13.5-17.5); IMMATURE GRANULOCYTES 0.1 % (0-5); MCH 22.8 pg (26.0-34.0); MCHC 32.2 g/dL (31.0-37.0); MCV 70.8 fL (80.0-100.0); MONOCYTES 11.9 % (2-11); NEUTROPHILS 72.3 % (40-80); RBC 5.18 10x6/uL (4.20-6.10); RDW 19.1 % (11.5-14.5); WBC 9.8 10x3/uL (4.8-10.8)
[2017-11-07 10:21] LABS: PLATELET COUNT 188 10x3/uL (130-400)
[2017-11-07 10:33] LABS: HEMOGLOBIN A1C 6.1 % (4.8-6.0)
[2017-11-07 10:43] LABS: ALBUMIN 3.4 g/dL (3.4-5.0); ALKALINE PHOSPHATASE 95 U/L (46-116); ALT (SGPT) 21 U/L (10-68); BILIRUBIN - TOTAL 0.72 mg/dL (0.2-1.3); CALC OSMOLALITY 264 mosm/kg (275-300); CALCIUM 9.1 mg/dL (8.5-10.1); CARBON DIOXIDE 30.8 mmol/L (21.0-32.0); CHLORIDE - SERUM 95 mmol/L (98-107); CHOL - HDL RATIO 1.9 ratio (2.3-4.9); CHOLESTEROL, TOTAL 118 mg/dL (0-200); CREATININE - SERUM 0.9 mg/dL (0.6-1.3); GLUCOSE 116 mg/dL (74-106); HDL CHOLESTEROL 61 mg/dL (32-96); LDL CHOLESTEROL 45 mg/dL (0-100); LDL-HDL RATIO 0.7 ratio (1.5-3.5); POTASSIUM - SERUM 3.4 mmol/L (3.5-5.1); SODIUM 132 mmol/L (136-145); THYROID STIMULATING HORMONE 2.04 uIU/mL (0.36-3.74); TRIGLYCERIDE 61 mg/dL (30-200); UREA NITROGEN 9 mg/dL (7-18); eGFR NON AFRICAN AMERICAN 89 mL/min (90-120)
[2017-11-07 12:51] VITALS: BMI 32.4
[2017-11-07 22:30] VITALS: BP 133/67
[2017-11-08 08:18] VITALS: BP 130/074
[2017-11-08 19:30] VITALS: BP 115/86
[2017-11-09 06:07] LABS: VITAMIN D 25 HYDROXY 57.9 ng/mL (30.0-100.0)
[2017-11-09 08:00] VITALS: BP 107/071
[2017-11-09 20:29] VITALS: BP 118/81
[2017-11-10 07:57] VITALS: BP 111/75
[2017-11-10 08:17] LABS: RAPID PLASMA REAGIN Non Reactive (Non Reactive)
[2017-11-10 20:59] VITALS: BP 151/82
[2017-11-11 09:44] VITALS: BP 133/80
[2017-11-11 19:30] VITALS: BP 98/54
[2017-11-12 08:00] VITALS: BP 132/65
[2017-11-12 09:58] VITALS: Ht 165.1 cm; Wt 88.2 kg
[2017-11-12 21:29] VITALS: BP 101/58
[2017-11-13 09:30] VITALS: BP 122/79
[2017-11-13 19:35] VITALS: BP 127/65
[2017-11-14 10:20] VITALS: BP 142/82
[2017-11-14 20:03] VITALS: BP 150/64
[2017-11-15 07:00] VITALS: BP 112/66
[2017-11-15 19:53] VITALS: BP 127/74
[2017-11-16 08:22] VITALS: BP 098/058
[2017-11-16 19:21] VITALS: BP 103/69
[2017-11-17 07:00] VITALS: BP 94/68
[2017-11-17 19:46] VITALS: BP 122/67
[2017-11-18 08:55] VITALS: BP 119/061
[2017-11-18 19:41] VITALS: BP 118/68
[2017-11-19 07:37] VITALS: BP 124/86
[2017-11-19 19:30] VITALS: BP 138/89
[2017-11-20 08:44] VITALS: BP 103/61
[2017-11-20 19:30] VITALS: BP 132/89
[2017-11-21 10:50] VITALS: BP 140/64
[2017-11-21 20:33] VITALS: BP 105/60
[2017-11-22 07:00] VITALS: BP 126/66
[2017-11-22 20:30] VITALS: BP 149/56
[2017-11-23 08:32] VITALS: BP 124/67
[2017-11-23 19:56] VITALS: BP 106/68
[2017-11-24 08:49] VITALS: BP 138/066
[2017-11-25 08:00] VITALS: BP 103/076
[2017-11-25 19:36] VITALS: BP 88/40
[2017-11-26 09:37] VITALS: BP 138/75
[2017-11-26] MEDS ORDERED: LISINOPRIL10 MG PO (12:27)
[2017-11-26] MEDS ORDERED: NAMENDA5 MG PO (12:28)
[2017-11-26] MEDS ORDERED: PERPHENAZINE2 MG PO ×2 (12:28→12:29)
[2017-11-26] MEDS ORDERED: PEPCID20 MG PO (12:29)
[2017-11-26] MEDS ORDERED: HCTZ25 MG PO (12:29)
[2017-11-26] MEDS ORDERED: VITAMIN D5000 UNIT PO (12:30)
[2017-11-26 20:35] VITALS: BP 124/68
[2017-11-27 09:32] VITALS: BP 136/76
== END 2017-11-27 12:35 | disposition home or self-care (01) | DRG 884 ==
LOC: D.PSYCH 18:09
PROVIDERS: Psychiatry & Neurology Psychiatry
DX: F01.51 Vascular dementia, unspecified severity, with behavioral disturbance (principal); F02.81 Dementia in other diseases classified elsewhere, unspecified severity, with behavioral disturbance; G30.9 Alzheimer's disease, unspecified; F10.20 Alcohol dependence, uncomplicated; E55.9 Vitamin D deficiency, unspecified; E53.8 Deficiency of other specified B group vitamins; D53.9 Nutritional anemia, unspecified; I10 Essential (primary) hypertension; E78.00 Pure hypercholesterolemia, unspecified; K21.9 Gastro-esophageal reflux disease without esophagitis; E11.9 Type 2 diabetes mellitus without complications; R63.0 Anorexia; Z68.32 Body mass index [BMI] 32.0-32.9, adult; J30.9 Allergic rhinitis, unspecified; I25.10 Atherosclerotic heart disease of native coronary artery without angina pectoris; E78.5 Hyperlipidemia, unspecified; K59.09 Other constipation; Z95.1 Presence of aortocoronary bypass graft

== ENCOUNTER 2019-05-25 19:47 | Emergency (ER) | payer MEDICARE, BC ==
[~2019-05-25] VITALS: Ht 165.1 cm; Wt 61.4 kg
[~2019-05-25 19:47] MED LIST changes: +NAMENDA5 MG PO; +PEPCID20 MG PO; +PERPHENAZINE2 MG PO; +ZESTORETIC 10/11 TAB PO; +ZOLOFT25 MG PO
[2019-05-25 19:52] VITALS: Ht 165.1 cm; Wt 61.4 kg
[2019-05-25] MEDS ORDERED: VITAMIN B-121000 MCG PO (19:54)
[2019-05-25] MEDS ORDERED: ROBITUSSIN DM 110 ML PO (19:56)
[2019-05-25 21:09] LABS: BASOPHILS 0.6 % (0-2); EOSINOPHILS 3.2 % (0-7); HEMATOCRIT 31.3 % (42.0-54.0); HEMOGLOBIN 10.3 g/dL (13.5-17.5); IMMATURE GRANULOCYTES 0.1 % (0-5); LYMPHOCYTES 26.8 % (15-50); MCH 24.5 pg (26.0-34.0); MCHC 32.9 g/dL (31.0-37.0); MCV 74.5 fL (80.0-100.0); MONOCYTES 13.6 % (2-11); NEUTROPHILS 55.7 % (40-80); PLATELET COUNT 165 10x3/uL (130-400); WBC 8.5 10x3/uL (4.8-10.8)
[2019-05-25 21:22] LABS: INR 1.04 (0.85-1.17); PROTIME 13.1 SECONDS (11.6-15.0)
[2019-05-25 21:23] LABS: ALBUMIN 3.7 g/dL (3.4-5.0); ALKALINE PHOSPHATASE 88 U/L (46-116); ALT (SGPT) 20 U/L (10-68); BILIRUBIN - TOTAL 0.29 mg/dL (0.2-1.3); CALC OSMOLALITY 272 mosm/kg (275-300); CALCIUM 8.9 mg/dL (8.5-10.1); CARBON DIOXIDE 27.8 mmol/L (21.0-32.0); CHLORIDE - SERUM 101 mmol/L (98-107); CREATININE - SERUM 0.8 mg/dL (0.6-1.3); GLUCOSE 86 mg/dL (74-106); POTASSIUM - SERUM 3.9 mmol/L (3.5-5.1); PROTEIN - SERUM 6.4 g/dL (6.4-8.2); SODIUM 137 mmol/L (136-145); UREA NITROGEN 12 mg/dL (7-18); eGFR NON AFRICAN AMERICAN > 90 mL/min (90-120)
[2019-05-25 21:33] LABS: CKMB 4.8 U/L (0.0-3.6); CREATINE KINASE 308 UL (21-232); PRO BNP 129 pg/mL (0-125)
[2019-05-25 21:35] LABS: C-REACTIVE PROTEIN < 0.2 mg/dL (0.0-0.9); TROPONIN-I < 0.017 ng/mL (0.000-0.060)
[2019-05-25 22:49] VITALS: BP 114/71
== END 2019-05-25 22:50 | disposition home or self-care (01) ==
LOC: D.ER 19:47
PROVIDERS: Family Medicine
DX: S70.02XA Contusion of left hip, initial encounter (principal); W18.30XA Fall on same level, unspecified, initial encounter; Y93.89 Activity, other specified; Y92.129 Unspecified place in nursing home as the place of occurrence of the external cause

== ENCOUNTER 2019-09-05 16:14 | Inpatient (IN) | payer MEDICARE, BC ==
[~2019-09-05] VITALS: Ht 165.1 cm; Wt 74.2 kg
[2019-09-05 15:15] VITALS: BP 121/54
--- NOTE | 2019-09-05 15:30 | NUR ---
ADMITTED TO ROOM [address] [facility] FROM [place]. FOR AGGRESSION WITH STAFF. HE AMBULATES WITH A WALKER. CODE WORD= LAWN CARE. CODE STATUS=FULL CODE.
[~2019-09-05 16:14] MED LIST changes: +ROBITUSSIN DM 110 ML PO; +VITAMIN B-121000 MCG PO
[2019-09-05] MEDS ORDERED: NAMENDA10 MG PO (18:03)
[2019-09-05] MEDS ORDERED: ACETAMINOPHEN325 MG PO (18:06)
--- NOTE | 2019-09-05 20:56 | NUR ---
RECEIVED IN HALLWAY. SITTING IN A CHAIR OUTSIDE OF NURSES STATION. CALM AND COOPERATIVE WITH CARE AND ASSESSMENT. NO SIGNS OF AGGRESSION. REDIRECT AND REORIENT NEEDED. RESTING IN BED WITH EYES CLOSED AT THIS TIME. CONTINUE PLAN OF CARE
[2019-09-05 21:51] LABS: APPEARANCE CLEAR (CLEAR); BILIRUBIN NEGATIVE (NEGATIVE); COLOR YELLOW (YELLOW); GLUCOSE NEGATIVE (NEGATIVE); KETONE NEGATIVE (NEGATIVE); NITRITE NEGATIVE (NEGATIVE); PROTEIN NEGATIVE (NEGATIVE); UROBILINOGEN NORMAL (NORMAL)
[2019-09-05 22:04] VITALS: BP 126/68
[2019-09-05 22:39] VITALS: BP 126/68; BMI 26.9
--- NOTE | 2019-09-06 02:15 | NUR ---
PATIENT UP AMBULATING IN HIS ROOM. TALKING TO THE MIRROR TALKING TO BRAEDEN. REALTING STEVE IS GOING TO BE HERE SOON. RELATING "OK I'LL GOING TO DO GO AHEAD AND DO IT." TRYING TO LAY DOWN ON WINDOW SEAL. STAFF HAD TO BE PT TO BED. RELATES "WE ARE GOING TO [facility]." VERY CONFUSED. NOT FOLLOWING VERBAL INSTRUCTIONS.
[2019-09-06 07:17] LABS: BASOPHILS 0.6 % (0-2); EOSINOPHILS 6.4 % (0-7); HEMATOCRIT 33.7 % (42.0-54.0); HEMOGLOBIN 10.3 g/dL (13.5-17.5); IMMATURE GRANULOCYTES 0.1 % (0-5); LYMPHOCYTES 23.8 % (15-50); MCH 22.8 pg (26.0-34.0); MCHC 30.6 g/dL (31.0-37.0); MCV 74.7 fL (80.0-100.0); MONOCYTES 11.1 % (2-11); RBC 4.51 10x6/uL (4.20-6.10); RDW 16.8 % (11.5-14.5); WBC 6.9 10x3/uL (4.8-10.8)
[2019-09-06 07:18] LABS: PLATELET COUNT 216 10x3/uL (130-400)
[2019-09-06 08:00] VITALS: BP 115/48
[2019-09-06 08:06] LABS: ALBUMIN 3.5 g/dL (3.4-5.0); ALKALINE PHOSPHATASE 100 U/L (46-116); ALT (SGPT) 21 U/L (10-68); BILIRUBIN - TOTAL 0.37 mg/dL (0.2-1.3); CALC OSMOLALITY 286 mosm/kg (275-300); CALCIUM 8.7 mg/dL (8.5-10.1); CARBON DIOXIDE 29.4 mmol/L (21.0-32.0); CHLORIDE - SERUM 107 mmol/L (98-107); CHOL - HDL RATIO 1.7 ratio (2.3-4.9); CHOLESTEROL, TOTAL 145 mg/dL (0-200); CREATININE - SERUM 0.7 mg/dL (0.6-1.3); GLUCOSE 74 mg/dL (74-106); HDL CHOLESTEROL 86 mg/dL (32-96); LDL CHOLESTEROL 54 mg/dL (0-100); LDL-HDL RATIO 0.6 ratio (1.5-3.5); POTASSIUM - SERUM 3.6 mmol/L (3.5-5.1); PROTEIN - SERUM 6.5 g/dL (6.4-8.2); SODIUM 145 mmol/L (136-145); THYROID STIMULATING HORMONE 3.08 uIU/mL (0.36-3.74); TRIGLYCERIDE 27 mg/dL (30-200); UREA NITROGEN 10 mg/dL (7-18); eGFR NON AFRICAN AMERICAN > 90 mL/min (90-120)
[2019-09-06 10:13] VITALS: Ht 165.1 cm; Wt 74.2 kg
--- NOTE | 2019-09-06 11:00 | NUR ---
B) PATIENT AWAKE AND ALERT TO SELF ONLY. CONSTANTLY TALKS TO VOICES. NO AGGRESSION NOTED. DIFFICULTY WITH REDIRECTION. I) ADMINISTERED SCHEDULED MEDICATIONS. REDIRECT AND REORIENT FREQUENTLY. R) COMPLIANT WITH MEDICATIONS TAKEEN WHOLE. P) CONTINUE PLAN OF CARE.
--- NOTE | 2019-09-06 21:34 | NUR ---
RECEIVED IN DAYROOM. CONTINUOUSLY ATTEMPTING TO GET UP WITHOUT ASSISTANCE. ALARM SOUNDING. TALKING TO UNSEEN PEOPLE. NO AGGRESSIVE BEHAVIORS. REDIRECT AND REORIENT NEEDED. RESTING IN RECLINER IN HALLWAY OUTSIDE OF NURSES STATION WITH EYES OPEN AT THIS TIME. CONTINUE PLAN OF CARE.
[2019-09-07 08:11] LABS: RAPID PLASMA REAGIN Non Reactive (Non Reactive)
[2019-09-07 08:12] VITALS: BP 140/66
--- NOTE | 2019-09-07 13:33 | NUR ---
PT IN DAYROOM WITH STAFF AND PEERS ATTENDING GROUP. AWAKE AND ALERT TO PERSON ONLY. PT CAN BECOME VERY RESTLESS AT TIMES. CALM AND COOPERATIVE WITH ASSESSMENT AT THIS TIME. REDIRECT AND REORIENT NEEDED. TAKES MED WHOLE. MED COMPLIANT. FALL PRECAUTIONS IN PLACE. WILL CPOC.
--- NOTE | 2019-09-07 14:23 | PSY ---
PATIENT NAME:AMBAR FLORES MEDICAL RECORD: [id number] : 49 LOCATION:BEATA Grewal ADMISSION DATE: 09/05/19 ACCOUNT: [id number] PSYCHIATRIC EVALUATION DATE OF EVALUATION: 09/06/19 IDENTIFYING DATA: The patient is 74 years old and he is admitted to the hospital on a voluntary basis. CHIEF COMPLAINT: Aggression. HISTORY OF PRESENT ILLNESS: The patient lives in the [facility]. He has a known history of dementia. He has been aggressive with the staff at the assisted living center and refusing to take his medications. On interview, he denies that this is the case and is very angry. He is argumentative with me about being in the hospital and says that this is not a hospital. PAST MEDICAL HISTORY: Significant for alcohol abuse, diabetes, hypertension, gastroesophageal reflux disease, and hypercholesterolemia. PAST PSYCHIATRIC HISTORY: Significant for 3 previous hospitalizations here for behavior issues. SOCIAL HISTORY: The patient's about 12 years ago. He has a son who about 3 years ago and he has another son who lives here in [place] and is involved with his care. The patient apparently worked for the [employer] and is a [place] . ALLERGIES: No known drug allergies. CURRENT MEDICATIONS: Include Pepcid, Colace, aspirin, Zestril, Namenda, Lipitor, Glucophage, and a variety of vitamins. MENTAL STATUS EXAMINATION: The patient is oriented to person only. His speech is rambling and confused. His mood is flat. His affect is constricted. Thought processes are disorganized and he denies any thoughts of harming himself or others as well as overt psychotic symptoms. He has evidence of significant and severe short-term memory impairment. ASSETS: Supportive family members. LIABILITIES: Limited insight. DIAGNOSTIC IMPRESSION: AXIS I: 1. Major vascular neurocognitive disorder. 2. History of alcohol abuse. AXIS II: None. AXIS III: Hypertension, diabetes, hypercholesterolemia. AXIS IV: Moderate. AXIS V: Global assessment of functioning is 30. PLAN: At this time, the patient is admitted to the hospital for a comprehensive medical, psychological, and social evaluation. He will be treated with both mood stabilizing and memory enhancing medications. His long-term prognosis is guarded. TRANSINT:[id number] Voice Confirmation ID: [id number] DOCUMENT ID: [id number] WYATT VELASQUEZ MD at 1423 CC: [id number] DICTATION DATE: 09/06/19 1522 METAL HANGING SUPERVISOR: 09/06/19 1551 ADM IN [facility] [address] [id number]
[2019-09-07 20:00] VITALS: BP 137/70
--- NOTE | 2019-09-08 00:12 | NUR ---
B.) PT IS ALERT AND ORIENTED TO SELF ONLY. HE IS HALLUCINATING OTHER CONVERSATIONS WITH PEOPLE NOT CURRENTLY PRESENT. HE IS PLEASANT AND COOPERATIVE WITH STAFF. HE IS RECEIVED IN HIS GERICHAIR IN THE DAYROOM. I.) PROVIDE PM MEDICATIONS. REDIRECT OFTEN. R.) COMPLIANT WITH ALL MEDICATIONS. DIFFICULT TO REDIRECT. P.) CONTINUE PLAN OF CARE
[2019-09-08 09:06] VITALS: BP 120/71
--- NOTE | 2019-09-08 10:00 | NUR ---
RECEIVED PT IN DINING ROOM FOR B'FAST. ALERT, CONFUSED, COOPERATIVE, PLEASANT. MEDS ADMIN PER ORDERS WITH MED COMPLIANCE NOTED. COOPERATIVE WITH PLAN OF CARE. CONT POC DIRECTED.
--- NOTE | 2019-09-08 12:26 | NUR ---
NUTRITION F//U PT TOLERATING REG DIET WITH 75 TO 100% INTAKE RECENT MEALS. STABLE WT SINCE ADMIT. +BM RECORDED 09/08/19. WILL CONTINUE TO PROVIDE CURRENT DIET, MONITOR PO INTAKE, WT. RD FOLLOWING
--- NOTE | 2019-09-08 14:30 | PN ---
PATIENT:AMBAR FLORES MEDICAL RECORD: [id number] LOCATION:BEATA Arroyo ADMISSION DATE: 09/05/19 PROGRESS NOTE DATE OF SERVICE: 09/07/2019 SUBJECTIVE: The patient's case was discussed with staff. He has no new complaint. OBJECTIVE: The patient is in good behavioral control with poor insight about his situation. ASSESSMENT: Vascular dementia. PLAN: The patient will be maintained on current medicines. He has only been here for 48 hours. I observe him to be seriously and significantly disorganized. He did require p.r.n. medication yesterday. I am going to start him on a scheduled dose of Geodon to assist with his thought disorganization. TRANSINT:[id number] Voice Confirmation ID: [id number] DOCUMENT ID: [id number] WYATT VELASQUEZ MD at 1430 CC: [id number] DICTATION DATE: 09/07/19 1440 MEDICAL ASSISTANT INSTRUCTOR: 09/07/19 2354 ADM IN [place] [place] [address]
--- NOTE | 2019-09-08 15:17 | NUR ---
PATIENT NOTED TO BEING CARRYING ON A CONVERSATION WITH TWO UNSEEN INDIVIDUALS AND SPEAKING FOR EACH OF THEM
--- NOTE | 2019-09-08 18:54 | NUR ---
SPOKE WITH SISTER ISABEL. PASSCODE GIVEN. WANTED TO SEE HOW HE WAS DOING. NURSE TOLD HER ABOUT MED ADJUSTMENTS, HOW HE WAS DOING AND HIS CURRENT BEHAVIOR. SHE SAID THAT HE STARTED TO TALK TO SOMEONE ELSE AT [facility] AND THAT UPSET HER. WITH MED ADJUSTMENTS IF HE WAS DOING OKAY.
[2019-09-08 20:20] VITALS: BP 131/60
--- NOTE | 2019-09-09 00:59 | NUR ---
B) Patient is alert and oriented to to person, calm and cooperative this shift I) Administered scheduled medications as ordered, monitored for safety R) Mediation compliant, pleasnat and friendly toward staff P) Continue plan of care.
[2019-09-09 08:57] VITALS: BP 111/69
--- NOTE | 2019-09-09 09:20 | NUR ---
RECEIVED PATIENT IN DINING ROOM FOR B'FAST, ALERT, CALM, CONFUSED, CONT TO CARRY ON TWO-PERSON CONVERSATIONS AND ANSWERING FOR EACH ONE. MEDS ADMIN PER ORDERS WITH COMPLETE MED COMPLIANCE NOTED. COOPERATIVE WITH CARE, CONT POC DIRECTED.
--- NOTE | 2019-09-09 15:13 | PN ---
PATIENT:AMBAR FLORES MEDICAL RECORD: [id number] LOCATION:BEATA Arroyo ADMISSION DATE: 09/05/19 PROGRESS NOTE DATE OF SERVICE: 09/08/2019 SUBJECTIVE: The patient's case was discussed with staff. He has no new complaint. OBJECTIVE: The patient is in good behavioral control with limited insight about his condition. He is tolerating his medicines well. ASSESSMENT: Dementia. PLAN: Current medicines have been reviewed and will be maintained. Long-term prognosis is guarded. TRANSINT:[id number] Voice Confirmation ID: [id number] DOCUMENT ID: [id number] WYATT VELASQUEZ MD at 1513 CC: [id number] DICTATION DATE: 09/08/19 1550 NAVY SENIOR OFFICER: 09/08/19 2251 ADM IN [place] [address] [place] [address]
--- NOTE | 2019-09-09 20:51 | NUR ---
PATIENT IS SO CONFUSED BUT CALM, TALKS TO HIMSELF, HE IS PLEASANT AND THANKFUL FOR THE CARE HE RECEIVES. COMPLIANT WITH MEDS. WILL FOLLOW POC
[2019-09-09 21:30] VITALS: BP 101/44
--- NOTE | 2019-09-10 09:45 | NUR ---
B) The patient is awake and alert, he is pleasant. Talking to his unseen others about buying a new Bronco. "The new ones come out in fourteen days, aint that right Melchor." He does talk and talk. He self propels in a w/c. I) Provide prescribed meds. R) The patient is compliant with meds. P) Continue POC.
[2019-09-10 10:33] VITALS: BP 107/69
--- NOTE | 2019-09-10 11:06 | PN ---
PATIENT:AMBAR FLORES MEDICAL RECORD: [id number] LOCATION:BEATA Arroyo ADMISSION DATE: 09/05/19 PROGRESS NOTE DATE OF SERVICE: 09/09/2019 SUBJECTIVE: The patient's case was discussed with staff. He has no new complaint. OBJECTIVE: The patient is in good behavioral control with limited insight about his condition. He is tolerating his medicines well. He has not been aggressive today. His behaviors have certainly improved significantly. ASSESSMENT: Vascular dementia. PLAN: There has been no aggressive behavior. I do not think this is largely related to anything I have done with him pharmacologically, but would rather say it is more likely due to the environment and the almost constant level of supervision that he is experiencing. His long-term prognosis is guarded. TRANSINT:[id number] Voice Confirmation ID: [id number] DOCUMENT ID: [id number] WYATT VELASQUEZ MD at 1106 CC: [id number] DICTATION DATE: 09/09/19 1531 SPOT SPRAYER: 09/09/19 2316 ADM IN [facility] [address] [place] [address]
[2019-09-10 22:46] VITALS: BP 116/67
--- NOTE | 2019-09-10 23:25 | NUR ---
REC'D IN DAYROOM ROLLING SELF AROUND THE ROOM. CONFUSED AND DISORIENTED. PLEASANT WHEN APPROACHED HOWEVER DOES NOT FOLLOW TOPIC OF CONVERSATION. CARRIES ON CONVERSATIONS WITH SELF AND CALLS THE PEOPLE HE IS TALKING TO BY NAME ONE BEING BRAEDEN AND ANOTHER ESTUARDO. ADMINISTER MEDS Q SHIFT AND MONITOR COMPLIANCE. REORIENT Q SHIFT AND NEEDED. MED COMPLIANT. UNABLE TO REORIENT D/T IMPAIRED ABILITY TO COMPREHEND AND PROCESS INFORMATION. CONTINUE POC AND PROVIDE SAFE ENVIRONMENT.
[2019-09-11 08:00] VITALS: BP 112/62
--- NOTE | 2019-09-11 10:45 | PN ---
PATIENT:AMBAR FLORES MEDICAL RECORD: [id number] LOCATION:BEATA Arroyo ADMISSION DATE: 09/05/19 PROGRESS NOTE DATE OF SERVICE: 09/10/2019 SUBJECTIVE: The patient's case was discussed with staff. He has no new complaint. OBJECTIVE: The patient is in good behavioral control. He has limited insight about his situation and is eating marginally well and sleeping fine. ASSESSMENT: No change in diagnoses. PLAN: Brief supportive and educational interventions were made. Long-term prognosis is guarded. TRANSINT:[id number] Voice Confirmation ID: [id number] DOCUMENT ID: [id number] WYATT VELASQUEZ MD at 1045 CC: [id number] DICTATION DATE: 09/10/19 1204 PATENT PROSECUTION ATTORNEY: 09/10/19 1235 ADM IN [address] [id number] [place] [address]
--- NOTE | 2019-09-11 12:46 | NUR ---
PT IS AWAKE AND ALERT TO PERSON ONLY. CALM AND COOPERATIVE WITH ASSESSMENT. MED COMPLIANT. PT CONTINUES TO TALK TO UNSEEN OTHERS. NO OTHER BEHAVIORS NOTED. REDIRECT AND REORIENT NEEDED. FALL PRECAUTIONS IN PLACE. WILL CPOC.
--- NOTE | 2019-09-11 20:12 | NUR ---
RECEIVED IN DAYROOM. SITTING IN A WHEELCHAIR AT THE TABLE. CALM AND COOPERATIVE WITH CARE AND ASSESSMENT. NO SIGNS OF AGGRESSION. REDIRECT AND REORIENT NEEDED. CONTINUES TO SIT CALMLY AT TABLE. CONTINUE PLAN OF CARE
[2019-09-11 20:16] VITALS: BP 122/67
[2019-09-12 08:15] VITALS: BP 142/76
--- NOTE | 2019-09-12 13:04 | NUR ---
DR. MARIA OFFICE CALLED IN REGARDS TO CONSULT ORDERED.
--- NOTE | 2019-09-12 13:53 | NUR ---
CONT TO EXPERIENCE HALLUCINATIONS, ASKING QUESTIONS TO VARIOUS UNSEEN PERSONS AND IN TURN, ANSWERS THE QUESTIONS.
--- NOTE | 2019-09-12 14:14 | NUR ---
PT IS AWAKE AND ALERT TO PERSON ONLY. CALM AND COOPERATIVE WITH ASSESSMENT. MED COMPLIANT. REDIRECT AND REORIENT NEEDED. PT CONTINUES TO CARRY ON CONSERVATIONS WITH UNSEEN OTHERS. FALL PRECAUTIONS IN PLACE. WILL CPOC.
--- NOTE | 2019-09-12 15:38 | PN ---
PATIENT:AMBAR FLORES MEDICAL RECORD: [id number] LOCATION:[facility] ADMISSION DATE: 09/05/19 PROGRESS NOTE DATE OF SERVICE: 09/11/2019 SUBJECTIVE: The patient's case was discussed with staff. He has no new complaint. OBJECTIVE: The patient is in good behavioral control with limited insight about his condition. He tolerates his medicines well. ASSESSMENT: Vascular dementia. PLAN: Current medicines and therapies have been reviewed, both will be maintained. He is continuing to progress, and I anticipate he can be transitioned out of the hospital soon if this level of improvement is continued. TRANSINT:[id number] Voice Confirmation ID: [id number] DOCUMENT ID: [id number] WYATT VELASQUEZ MD at 1538 CC: [id number] DICTATION DATE: 09/11/19 1217 TARGET WORKER: 09/11/19 1321 ADM IN [facility] [address] [place] [id number]
[2019-09-12 20:06] VITALS: BP 124/74
--- NOTE | 2019-09-12 21:24 | NUR ---
B.) PT IS ALERT AND ORIENTED TO SELF ONLY. HE IS RECIEVED IN THE DAY ROOM TALKING TO HIMSELF. HE IS PLEASANT WITH STAFF. I.) PROVIDED PM MEDICATIONS. REDIRECT OFTEB. R.) COMPLIANT WITH ALL MEDICATIONS. EASY TO REDIRECT. P.) CONTINUE PLAN OF CARE
--- NOTE | 2019-09-12 21:24 | NUR ---
RECEIVED IN DAYROOM. SITTING AT THE TABLE IN A WHEELCHAIR. CALM AND COOPERATIVE WITH CARE AND ASSESSMENT. NO SIGNS OF AGGRESSION. REDIRECT AND REORIENT. CONTINUES TO SIT QUIETLY AT THIS TIME. CONTINUE PLAN OF CARE
[2019-09-13 08:00] VITALS: BP 98/55
--- NOTE | 2019-09-13 11:23 | PN ---
PATIENT:AMBAR FLORES MEDICAL RECORD: [id number] LOCATION:[facility] ADMISSION DATE: 09/05/19 PROGRESS NOTE DATE OF SERVICE: 09/12/2019 SUBJECTIVE: The patient's case was discussed with staff. He has no new complaint. OBJECTIVE: The patient is in good behavioral control with limited insight about his condition. He is tolerating his medicines well. ASSESSMENT: Vascular dementia. PLAN: The patient has been observed having conversations with persons not present. Apparently, he is talking to someone named Sandrita and someone else Oh. It is a casual conversation. He is pausing, letting the person speak and then he answers. It is not about anything in particular. He was telling Sandrita that they needed to go to the store and get something. He is taking an antipsychotic medication. I am little hesitant to try to address this too aggressively at this point. I will observe it and I may change to a different medication. I think it is part of the disease process and just associated with his dementia. TRANSINT:[id number] Voice Confirmation ID: [id number] DOCUMENT ID: [id number] WYATT VELASQUEZ MD at 1123 CC: [id number] DICTATION DATE: 09/12/19 1726 QUALITY ASSISTANT: 09/12/19 2302 ADM IN [place] [id number] [place] [id number]
[2019-09-13 13:29] LABS: BASOPHILS 0.6 % (0-2); EOSINOPHILS 7.2 % (0-7); HEMATOCRIT 34.3 % (42.0-54.0); HEMOGLOBIN 10.2 g/dL (13.5-17.5); IMMATURE GRANULOCYTES 0.2 % (0-5); LYMPHOCYTES 17.3 % (15-50); MCH 22.8 pg (26.0-34.0); MCHC 29.7 g/dL (31.0-37.0); MCV 76.7 fL (80.0-100.0); MONOCYTES 11.7 % (2-11); PLATELET COUNT 205 10x3/uL (130-400); RBC 4.47 10x6/uL (4.20-6.10); RDW 17.3 % (11.5-14.5); WBC 10.8 10x3/uL (4.8-10.8)
--- NOTE | 2019-09-13 15:16 | NUR ---
PT IS AWAKE AND ALERT TO PERSON. CALM AND COOPERATIVE WITH ASSESSMENT. MED COMPLIANT. PT CONTINUES TO TALK WITH UNSEEN OTHERS. NO OTHER BEHAVIORS NOTED AT THIS TIME. REDIRECT AND REORIENT NEEDED. FALL PRECAUTIONS IN PLACE. WILL CPOC.
--- NOTE | 2019-09-13 19:50 | NUR ---
RECEIVED IN DAYROOM. SITTING IN A RECLINING CHAIR AT THE TABLE. TALKING TO HIMSELF. CALM AND COOPERATIVE WITH CARE AND ASEESSMENT. NO SIGNS OF AGGRESSION. REDIERCT AND REORIENT NEEDED. CONTINUE TO SIT IN RECLINER AT TABLE. CONTINUE PLAN OF CARE
[2019-09-13 20:09] VITALS: BP 100/55
[2019-09-14 08:26] VITALS: BP 110/54
--- NOTE | 2019-09-14 10:00 | NUR ---
RECEIVED PT. IN DINING ROOM FOR B'FAST, ALERT, CALM, COOPERATIVE, MEDS ADMIN PER ORDERS WITH COMPLETE MED COMPLIANCE NOTED. NO AGGRESSION NOTED. CONT TO HAVE AUDITORY HALLUCINATIONS. CONT POC DIRECTED.
[2019-09-14 11:38] LABS: % SATURATION 10 % (15-55); IRON 18 ug/dl (35-150); TOTAL IRON BIND CAPACITY 170 ug/dl (260-445); UNSAT IRON BIND CAPACITY 152 ug/dl (150-375)
--- NOTE | 2019-09-14 12:53 | PN ---
PATIENT:AMBAR FLORES MEDICAL RECORD: [id number] LOCATION:[facility] ADMISSION DATE: 09/05/19 PROGRESS NOTE DATE OF SERVICE: 09/13/2019 SUBJECTIVE: The patient's case was discussed with staff. He has no new complaint. OBJECTIVE: The patient is in good behavioral control with limited insight about his condition. He does tolerate his medicines well. ASSESSMENT: Vascular dementia. PLAN: Brief supportive and educational interventions were made. Long-term prognosis is guarded. TRANSINT:[id number] Voice Confirmation ID: [id number] DOCUMENT ID: [id number] WYATT VELASQUEZ MD at 1253 CC: [id number] DICTATION DATE: 09/13/19 1142 MANAGER LICENSING: 09/13/19 1148 ADM IN [place] [address] [place] [address]
--- NOTE | 2019-09-14 18:54 | NUR ---
RECEIVED IN DAYROOM. SITTING IN A RECLINING CHAIR AT TABLE WITH STAFF. RESTLESS AT TIMES. CALM AND COOPERAITVE WITH CARE AND ASSESSMENT. NO SIGNS OF AGGRESSION. REDIERCT AND REORIENT NEEDED. CONTINUES TO SIT AT TABLE WITH STAFF. CONTINUE PLAN OF CARE
[2019-09-14 20:01] VITALS: BP 95/62
[2019-09-15 08:50] VITALS: BP 91/31
--- NOTE | 2019-09-15 12:32 | NUR ---
NUTRITION F/U PT TOLERATING REG DIET. GOOD INTAKE MOST MEALS. +BM ON 09/14/19. ? RECENT WT. WILL REASSESS NEXT WEEK. RD FOLLOWING
--- NOTE | 2019-09-15 13:44 | NUR ---
B) The patient continues to speak to unseen others and he admits he is talking to himself. He is verbal and does not stop even if there is a conversation going on. He has not showing any aggression today. I) Provide prescribed meds. R) The patient is compliant with meds. P) Continue POC.
--- NOTE | 2019-09-15 15:01 | PN ---
PATIENT:AMBAR FLORES MEDICAL RECORD: [id number] LOCATION:[facility] ADMISSION DATE: 09/05/19 PROGRESS NOTE DATE OF SERVICE: 09/14/2019 SUBJECTIVE: The patient's case was discussed with staff. He has no new complaint. OBJECTIVE: The patient is in good behavioral control. He has no thoughts of harming himself or others. Unfortunately, early this morning, he was given a p.r.n. dose of Ativan because of some agitation. ASSESSMENT: Vascular dementia. PLAN: The patient is currently taking a scheduled dose of Geodon, which will be increased. He will be monitored for clinical changes associated with this. He continues to hallucinate and is having very extensive and pleasant conversations with Sandrita. Apparently Sandrita is his sister. TRANSINT:[id number] Voice Confirmation ID: [id number] DOCUMENT ID: [id number] WYATT VELASQUEZ MD at 1501 CC: [id number] DICTATION DATE: 09/14/191709 CHAIRMAN AND CHIEF EXECUTIVE OFFICER: 09/14/19 2310 ADM IN [place] [id number] [place] [address]
[2019-09-15 20:20] VITALS: BP 112/63
--- NOTE | 2019-09-15 22:25 | NUR ---
REC'D SITTING IN THE DAYROOM. CARRIES ON CONTINUOUS CONVERSATION WITH SELF HOWEVER CALLS THE PEOPLE HE IS TALKING TO BY NAME FOR EXAMPLE BRAEDEN HUNT BEVERLY. PATIENT WILL ASK A QUESTION AND THEN ANSWER THE QUESTION HIMSELF AND LAUGH. TRIES TO GET UP UNASSISTED BECAUSE BRAEDEN SAYS THEY CAN. THANKS STAFF WHEN SOMETHING IS DONE FOR HIM OR RELATES OK WHEN ASKED TO DO SOMETHING BUT THEN GOES BACK TO TALKING TO SELF AND TRIES TO GET UP. ADMINISTER MEDS AND MONITOR COMPLIANCE. REORIENT NEEDED. MED COMPLIANT. POOR REORIENTATION DUE TO INABILITY TO SEPARATE REALITY FROM FANTASY. CONTINUE POC AND PROVIDE SAFE ENVIRONMENT.
--- NOTE | 2019-09-16 03:03 | NUR ---
PATIENT RECEIVED ATIVAN PO FOR ANXIETY, CONSTANT MOTION, CAN NOT CONSOLE.
--- NOTE | 2019-09-16 08:28 | NUR ---
B) The patient is awake, he is nonstop talking. This am he is talking about [employer]. He is not showing any aggression today. He can stand and ambulate, but he is unsteady. He listens to staff, but he does not follow the simple direction. He says "OK" but that is as far as it goes. I) Provide prescribed meds. R) The patient is compliant with meds. P) Continue POC.
[2019-09-16 09:39] VITALS: BP 112/78
--- NOTE | 2019-09-16 14:51 | PN ---
PATIENT:AMBAR FLORES MEDICAL RECORD: [id number] LOCATION:[facility] ADMISSION DATE: 09/05/19 PROGRESS NOTE DATE OF SERVICE: 09/15/2019 SUBJECTIVE: The patient's case was discussed with staff. He has no new complaint. OBJECTIVE: The patient is in good behavioral control with poor insight about his condition. He is tolerating his medicines well. He is still interacting with persons not seen as described before, but it is clearly better today. Whether or not that represents underlying improvement in his situation or just fluctuation in his symptoms is unclear. ASSESSMENT: Vascular dementia. PLAN: Current medicines have been reviewed and will be maintained. Long-term prognosis is guarded. TRANSINT:[id number] Voice Confirmation ID: [id number] DOCUMENT ID: [id number] WYATT VELASQUEZ MD at 1451 CC: [id number] DICTATION DATE: 09/15/19 1554 BLACK TOP SPREADER MACHINE OPERATOR: 09/15/19 1631 ADM IN [facility] [address] [place] [address]
[2019-09-16 20:00] VITALS: BP 109/65
--- NOTE | 2019-09-17 00:36 | NUR ---
B.) PT IS ALERT AND ORIENTED TO SELF ONLY. HE HAS POOR INSIGHT INTO HIS SITUATION. HE IS COOPERATIVE WITH STAFF BUT CONTINUES TO HALLUCINATE CONVERSATIONS WITH OTHERS WHO AREN'T PRESENT. I.) PROVIDED PM MEDICATIONS. REDIRECT OFTEN. R.) COMPLIANT WITH ALL MEDICATIONS. DIFFICULT TO REDIRECT. P.) CONTINUE PLAN OF CARE
--- NOTE | 2019-09-17 08:02 | PN ---
PATIENT:AMBAR FLORES MEDICAL RECORD: [id number] LOCATION:[facility] ADMISSION DATE: 09/05/19 PROGRESS NOTE DATE OF SERVICE: 09/16/2019 SUBJECTIVE: The patient's case was discussed with staff. He has no new complaint. OBJECTIVE: The patient is much less aggressive and irritable. He is also much less disorganized. He has in fact not had any conversations with Sandrita, his sister today. As I will mention what is already in previous notes that his sister is named Sandrita. He apparently is hallucinating her. Has been having long conversations with her. None of that happened today. I am encouraged ASSESSMENT: Vascular dementia. PLAN: Current medicines have been reviewed and will be maintained. Long-term prognosis is guarded. TRANSINT:[id number] Voice Confirmation ID: [id number] DOCUMENT ID: [id number] WYATT VELASQUEZ MD at 0802 CC: [id number] DICTATION DATE: 09/16/19 1521 DRAFTER REFRIGERATION: 09/16/19 2130 ADM IN [place] [id number] [place] [address]
[2019-09-17 09:16] VITALS: BP 114/49
--- NOTE | 2019-09-17 10:00 | NUR ---
The patient continues to talk to Oh, Sandrita, and Storm. He rambles and rambles and answers himself. He can ambulate with staff assist. Provide prescribed meds. The patient is compliant with meds. He has not shown any aggression today. Continue POC.
--- NOTE | 2019-09-17 19:59 | NUR ---
RECEIVED IN DAYROOM. SITTING IN RECLINER. TALKING TO UNSEEN PEOPLE. CALM AND COOPERATIVE WITH CARE AND ASSESSMENT. NO AGGRESSIVE BEHAVIORS. REDIRECT AND REORIENT NEEDED. CONTINUES TO TALK TO UNSEEN PEOPLE WHILE WAITING ON PM MEDICATIONS. CONTINUE PLAN OF CARE.
[2019-09-17 20:00] VITALS: BP 100/58
[2019-09-18 08:00] VITALS: BP 110/82
--- NOTE | 2019-09-18 17:03 | NUR ---
PATIENT HAS HAD AN EVENTFUL DAY. FAMILY HERE TO VISIT. PT CALM, CONFUSED, CONT AUDITORY HALLUCINATIONS. CALLS FEMALE STAFF "ISABEL" WHO IS HIS SISTER. MEDS ADMIN PER ORDERS WITH COMPLETE MED COMPLIANCE NOTED. CONT PLAN OF CARE DIRECTED.
[2019-09-18 20:10] VITALS: BP 110/79
--- NOTE | 2019-09-19 04:05 | NUR ---
B.) PT IS ALERT AND ORIENTED TO SELF ONLY. HE HAS CONVERSATIONS WITH PEOPLE WHO ARENT PRESENT AND ANSWERS FOR THEM. HE IS RECIEVED IN HIS GERICHAIR. HE IS PLEASANT WITH STAFF. I.) REDIRECT OFTEN. PROVIDE PM MEDICATIONS. R.) EASY TO REDIRECT. COMPLIANT WITH ALL MEDICATIONS. P.) CONTINUE PLAN OF CARE
[2019-09-19 08:28] VITALS: BP 99/64
--- NOTE | 2019-09-19 10:45 | NUR ---
CONTACTED [place] FOR EVALUATION
--- NOTE | 2019-09-19 13:03 | NUR ---
PT IS AWAKE AND ALERT TO PERSON ONLY. CALM AND COOPERATIVE WITH ASSESSMENT. PT CONTINUES TO TALK TO GILBERT AND BRAEDEN DURING THE SHIFT. MED COMPLIANT. REDIRECT AND REORIENT. FALL PRECAUTIONS IN PLACE. WILL CPOC.
--- NOTE | 2019-09-19 15:49 | PN ---
PATIENT:AMBAR FLORES MEDICAL RECORD: [id number] LOCATION:[facility] ADMISSION DATE: 09/05/19 PROGRESS NOTE DATE OF SERVICE: 09/18/2019 SUBJECTIVE: The patient's case was discussed with staff. He has no new complaint. OBJECTIVE: The patient is in good behavioral control with poor insight about his condition. He does tolerate his medicines well. ASSESSMENT: Dementia. PLAN: I anticipate the patient can be transitioned out of the hospital soon. He does continue to have ongoing psychotic symptoms, but they have dramatically lessened and again they are not terribly disturbing to him. I think weighing the relative risk and benefit of additional pharmacologic treatment leads me to conclude that this is the best balance I can get without possibly precipitating serious side effects. Also, the antipsychotic medication will continue to have effects for a number of weeks and he may just simply improve without doing anything else. TRANSINT:[id number] Voice Confirmation ID: [id number] DOCUMENT ID: [id number] WYATT VELASQUEZ MD at 1549 CC: [id number] DICTATION DATE: 09/18/19 1204 CURING SUPERVISOR: 09/18/19 1216 ADM IN [facility] [address] [place] [address]
--- NOTE | 2019-09-19 15:49 | PN ---
PATIENT:AMBAR FLORES MEDICAL RECORD: [id number] LOCATION:[facility] ADMISSION DATE: 09/05/19 PROGRESS NOTE DATE OF SERVICE: 09/17/2019 SUBJECTIVE: The patient's case was discussed with staff. He has no new complaint. OBJECTIVE: The patient is in good behavioral control with limited insight about his condition. He is upset today because he says Sandrita has taken his clothes. Sandrita is his sister, she is not here and his clothes are in his room. He is clearly delusional. I do have him on 40 mg a day of Geodon. I am reluctant to increase the dose. ASSESSMENT: Vascular dementia. PLAN: Current medicines will be maintained. Long-term prognosis is guarded. TRANSINT:[id number] Voice Confirmation ID: [id number] DOCUMENT ID: [id number] WYATT VELASQUEZ MD at 1549 CC: [id number] DICTATION DATE: 09/17/1938 SEARCH STRATEGIST: 09/17/19 0852 ADM IN [place] [address] [place] [address]
[2019-09-19 20:05] VITALS: BP 123/56
--- NOTE | 2019-09-19 21:20 | NUR ---
RECEIVED IN DAYROOM. SITTING IN A RECLINING CHAIR AT THE TABLE. VERY CONFUSED. CALM AND COOPERATIVE WITH CARE AND ASSESSMENT. NO SIGNS OF AGGRESSION. REDIRECT AND REORIENT NEEDED. CONTUNES TO SIT AT TABLE IN DAYROOM. CONTINUE PLAN OF CARE
--- NOTE | 2019-09-20 08:00 | NUR ---
PT IS AWAKE AND ALERT TO PERSON ONLY. CALM AND COOPERATIVE WITH ASSESSMENT. MED COMPLIANT. PT CONTINUES TO TALK TO UNSEEN OTHERS AT THIS TIME. NO OTHER BEHAVIORS NOTED. REDIRECT AND REORIENT NEEDED. FALL PRECAUTIOSN IN PLACE. WILL CPOC.
[2019-09-20 08:18] VITALS: BP 97/73
--- NOTE | 2019-09-20 15:28 | PN ---
PATIENT:AMBAR FLORES MEDICAL RECORD: [id number] LOCATION:[facility] ADMISSION DATE: 09/05/19 PROGRESS NOTE DATE OF SERVICE: 09/19/2019 SUBJECTIVE: The patient's case was discussed with staff. He has no new complaint. OBJECTIVE: The patient is in good behavioral control. He has limited insight about his condition. ASSESSMENT: Vascular dementia. PLAN: Brief supportive and educational interventions were made. Long-term prognosis is guarded. TRANSINT:[id number] Voice Confirmation ID: [id number] DOCUMENT ID: [id number] WYATT VELASQUEZ MD at 1528 CC: [id number] DICTATION DATE: 09/19/19 1641 SHEET METAL HELPER: 09/19/19 2152 ADM IN [place] [id number] [place] [id number]
--- NOTE | 2019-09-20 20:53 | NUR ---
RECEIVED IN DAYROOM. SITTING BY HIMSELF AT TABLE. CALM AND COOPERATIVE WITH CARE AND ASSESSMENT. NO SIGNS OF AGGRESSION. REDIRECT AND REORIENT NEEDED. CONTINUES TO SIT CALMLY AT TABLE IN RECLINING CHAIR. CONTINUE PLAN OF CARE
[2019-09-20 21:05] VITALS: BP 119/64
[2019-09-21 08:00] VITALS: BP 112/62
--- NOTE | 2019-09-21 09:36 | NUR ---
AWAKE AND ALERT WITH CONFUSION NOTED. CALM AND COOPERATIVE WITH CARE AND ASSESSMENT. ADMINISTER PRESCRIBED MEDICATIONS. COMPLIANT WITH MEDICATIONS. CAN AMBULATE WITH A WALKER. WILL CONTINUE PLAN OF CARE.
--- NOTE | 2019-09-21 14:20 | PN ---
PATIENT:AMBAR FLORES MEDICAL RECORD: [id number] LOCATION:[facility] ADMISSION DATE: 09/05/19 PROGRESS NOTE DATE OF SERVICE: 09/20/2019 SUBJECTIVE: The patient's case was discussed with staff. He has no new complaint. OBJECTIVE: The patient is in good behavioral control with limited insight about his condition. He is significantly and seriously delusional, again talking to people not present. Fortunately it is not something that distresses him in any serious way, but he is indeed quite psychotic. I am not going to increase the dose of his Geodon, it just simply does not seem to be having very much effect. I am going to change him to a high-potency neuroleptic and we will see if that has a better effect and provide us with a better result. TRANSINT:[id number] Voice Confirmation ID: [id number] DOCUMENT ID: [id number] WYATT VELASQUEZ MD at 1420 CC: [id number] DICTATION DATE: 09/20/19 1555 ORDER TAKERS SUPERVISOR: 09/20/19 2216 ADM IN [facility] [address] [place] [id number]
[2019-09-21 20:00] VITALS: BP 125/65
--- NOTE | 2019-09-21 22:28 | NUR ---
B.) PT IS ALERT AND ORIENTED TO SELF ONLY. HE IS ABLE TO AMBULATE WITH ASSISTANCE. HE IS PLEASANT WITH STAFF. HE HAS CONVERSATIONS WITH HIMSELF. I.) PROVIDED PM MEDICATIONS. REDIRECT NEEDED. R.) COMPLIANT WITH ALL MEDICATIONS. P.) CONTINUE PLAN OF CARE
[2019-09-22 08:36] VITALS: BP 108/54
--- NOTE | 2019-09-22 10:00 | NUR ---
RECEIVED PATIENT IN DINING ROOM FOR B'FAST, ALERT, CALM, AUDITORY HALLUCINATIONS, NO AGGRESSION. MEDS ADMIN PER ORDERS WITH COMPLETE MED COMPLIANCE NOTED. CONT POC DIRECTED.
--- NOTE | 2019-09-22 12:01 | NUR ---
NUTRITION F/U PT TOLERATING REG DIET WITH GOOD INTAKE RECENT MEALS. WT REMAINS STABLE. +BM RECORDED 09/21/19. WILL CONTINUE TO PROVIDE DIET, MONITOR PO INTAKE AND WT. RD FOLLOWING
--- NOTE | 2019-09-22 15:25 | PN ---
PATIENT:AMBAR FLORES MEDICAL RECORD: [id number] LOCATION:[facility] ADMISSION DATE: 09/05/19 PROGRESS NOTE DATE OF SERVICE: 09/21/2019 SUBJECTIVE: The patient's case was discussed with staff. He has no new complaint. OBJECTIVE: The patient is in good behavioral control. He has limited insight about his condition. He does tolerate his medicines well. ASSESSMENT: Vascular dementia. PLAN: The patient has improved. I think this is related to the changing of his antipsychotic medication. It could be just normal fluctuation of the disease process, but I think he is clearly better with the Risperdal and will have a better handle on whether that is actually true in a day or two. TRANSINT:[id number] Voice Confirmation ID: [id number] DOCUMENT ID: [id number] WYATT VELASQUEZ MD at 1525 CC: [id number] DICTATION DATE: 09/21/19 1544 LAN MANAGER: 09/22/19 0016 ADM IN [place] [address] [place] [address]
[2019-09-22 20:00] VITALS: BP 119/57
--- NOTE | 2019-09-22 22:53 | NUR ---
REC'D PT SITTING IN THE DAYROOM. CONFUSED AND DISORIENTED. PT WAS EATING HS SNACK. NOT INTERACTING WITH PEERS. PLEASANT WHEN APPROACHED BY STAFF. ADMINISTER MEDS AND MONITOR COMPLIANCE, OBSERVE FOR AGGRESSIVE BEHAVIOR AND REDIRECT NEEDED. MED COMPLIANT. SITTING AND HAVING HS SNACK. NO AGGRESSIVE BEHAVIOR OBSERVED. CONTINUE P0C AND PROVIDE SAFE ENVIRONMENT.
[2019-09-23 08:05] VITALS: BP 123/48
--- NOTE | 2019-09-23 11:45 | NUR ---
PATIENT SITTING IN DAY AREA. NOT TALKING TO BRAEDEN OR SELF AT THIS TIME. PT AMBULATE IN LAPS BY NURSES STATION WITH WALKER. PT SAT DOWN WHEN TIRED. PT COMPLIANT WITH MEDS, VITALS AND ASSESSMENTS. PT HAS NO BEHAVIORS NOTED THIS SHIFT. PT IS CONFUSED, ALERT AND ORIENTED TO SELF ONLY. CHAIR ALARM IN PLACE AND ACTIVE. WILL CONT PLAN OF CARE.
--- NOTE | 2019-09-23 14:32 | PN ---
PATIENT:AMBAR FLORES MEDICAL RECORD: [id number] LOCATION:[facility] ADMISSION DATE: 09/05/19 PROGRESS NOTE DATE OF SERVICE: 09/22/2019 SUBJECTIVE: The patient's case was discussed with staff. He has no new complaint. OBJECTIVE: The patient denies intent to harm himself or others. He is tolerating his medicines well. Eye contact is fair. ASSESSMENT: Vascular dementia. PLAN: The patient walked today. He is calmer and not talking to these imaginary people as much. I do think the antipsychotic is having a beneficial effect. TRANSINT:[id number] Voice Confirmation ID: [id number] DOCUMENT ID: [id number] WYATT VELASQUEZ MD at 1432 CC: [id number] DICTATION DATE: 09/22/19 1547 BACK ORDER CLERK: 09/22/19 2205 ADM IN [place] [id number] [place] [id number]
[2019-09-23 21:35] VITALS: BP 114/66
--- NOTE | 2019-09-23 22:58 | NUR ---
REC'D PT IN HIS ROOM. CONFUSED AND DISORIENTED. KEEPS GETTING OUT OF BED THINKING IT IS TIME TO GET UP. VISUAL HALLUCINATIONS RELATING HE IS WATCHING THE [place]IN[place] AND ALSO PT IS ALSO TALKING TO GILBERT AND BRAEDEN. ADMINISTER MEDS AND MONITOR COMPLIANCE. REDIRECT WITH REALITY BASED INFORMATION. MED COMPLIANT. POOR REDIRECTION DUE TO IMPAIRED ABILITY TO SEPARATE REALITY FROM FANTASY. CONTINUE POC AND PROVIDE SAFE ENVIRONMENT.
--- NOTE | 2019-09-24 08:27 | NUR ---
B) The patient is awake and he is still making some comments to "Oh and Storm." He can stand and transfer and he can ambulate with assistance, but he is unsteady. I) Provide prescribed meds. R) The patient is compliant with meds and unit milieu. P) Continue POC.
[2019-09-24 10:02] VITALS: BP 96/57
--- NOTE | 2019-09-24 12:27 | PN ---
PATIENT:AMBAR FLORES MEDICAL RECORD: [id number] LOCATION:[facility] ADMISSION DATE: 09/05/19 PROGRESS NOTE DATE OF SERVICE: 09/23/2019 SUBJECTIVE: The patient's case was discussed with staff. He has no new complaint. OBJECTIVE: The patient is much more interactive and appropriate with the recent medication changes. This has occurred long enough for me to conclude that it is the medicines that have helped and not that he was simply having a good day or two in a row. ASSESSMENT: Vascular dementia. PLAN: I anticipate the patient can be transitioned out of the hospital soon if this level of improvement continues. TRANSINT:[id number] Voice Confirmation ID: [id number] DOCUMENT ID: [id number] WYATT VELASQUEZ MD at 1227 CC: [id number] DICTATION DATE: 09/23/19 1438 HEEL BOOM OPERATOR: 09/23/19 1538 ADM IN [place] [address] [place] [address]
[2019-09-24 20:04] VITALS: BP 145/58
--- NOTE | 2019-09-25 00:21 | NUR ---
REC'D SITTING IN CHAIR. ATTEMPTS TO GET UP WHEN HEARING AUD LYLE. TALKS WITH GILBERT AND BRAEDEN. WHEN INSTRUCTED TO SIT IN CHAIR AND NOT GET UP ALONE PATIENT WILL RESPOND WITH OK HOWEVER IS STILL TRYING TO GET UP. ADMINISTER MEDS AND MONITOR COMPLIANCE. ENGAGE IN REALITY BASED CONVERSATION TO DISTRACT FROM HALLUCINATIONS. MED COMPLIANT. DIFFICULTY WITH DISTRACTION DUE TO IMPAIRED ABILITY TO SEPARATE REALITY FROM FANTASY. CONTINUE POC AND PROVIDE SAFE ENVIRONMENT.
[2019-09-25 09:05] VITALS: BP 114/61
--- NOTE | 2019-09-25 11:33 | NUR ---
PT IS AWAKE AND ALERT TO PERSON ONLY. CALM AND COOPERATIVE WITH ASSESSMENT. PRESCRIBED MEDS PROVIDED PER ORDER. MED COMPLIANT. PT CONTINUES TO TALK TO UNSEEN OTHERS AT THIS TIME. PT IS VERY RESTLESS, GETS UP AND DOWN CONSTANTLY. REDIRECT AND REORIENT NEEDED. PT DOES WALK WITH WALKER WITH STAFF AT SIDE, PT DOES HAVE UNSTEADY GAIT. FALL PRECAUTIONS IN PLACE. WILL CPOC.
--- NOTE | 2019-09-25 18:10 | NUR ---
PT CONTS TO BE RESTLESS AND AMBULATE WITH WALKER WITH VIEW ASSISTANCE. PT DID NOT WANT TO EAT MUCH OF DINNER. STATING "I JUST DONT WANT ANY MORE." NURSE ASSISTANCE WITH BEVERLY CHANGE AND CHANGED BRIEF.
--- NOTE | 2019-09-25 21:39 | NUR ---
RECEIVED IN PATIENT ROOM. RESTING IN BED WITH EYES CLOSED. CALM AND COOPERATIVE WITH CARE AND ASSESSMENT. NO AGGRESSIVE BEHAVIORS. REDIRECT AND REORIENT NEEDED. RESTING IN BED WITH EYES CLOSED AT THIS TIME. CONTINUE PLAN OF CARE.
[2019-09-26 10:44] VITALS: BP 135/75
--- NOTE | 2019-09-26 14:01 | PN ---
PATIENT:AMBAR FLORES MEDICAL RECORD: [id number] LOCATION:[facility] ADMISSION DATE: 09/05/19 PROGRESS NOTE DATE OF SERVICE: 09/24/2019 SUBJECTIVE: The patient's case was discussed with staff. He has no new complaint. OBJECTIVE: The patient is partially oriented. He is tolerating his Risperdal well and so far has had a dramatic reduction in his psychotic symptoms. He is no longer talking to his sister, Sandrita, or at least he is not doing it very much. I did not observe any psychotic symptoms today and so far today the nurse has not observed any either. He is actually quite pleasant and I anticipate he can be returned to the [facility] soon. ASSESSMENT: Vascular dementia. PLAN: Brief supportive and educational interventions were made. Current medicines have been reviewed. Long-term prognosis is guarded. TRANSINT:[id number] Voice Confirmation ID: [id number] DOCUMENT ID: [id number] WYATT VELASQUEZ MD at 1401 CC: [id number] DICTATION DATE: 09/24/19 1233 KNOCK OUT HAND: 09/24/19 1245 ADM IN [place] [id number] [place] [address]
--- NOTE | 2019-09-26 15:25 | NUR ---
PT IS AWAKE AND ALERT TO PERSON ONLY. CALM AND COOPERATIVE WITH ASSESSMENT. MED COMPLIANT. PRESCRIBED MEDS PROVIDED NEEDED. NO BEHAVIORS NOTED AT THIS TIME. REDIRECT AND REORIENT NEEDED. FALL PRECAUTIONS IN [place]. WILL CPOC.
[2019-09-26] MEDS ORDERED: FERROUS SULFAT325 MG PO (17:37)
[2019-09-26] MEDS ORDERED: RisperDAL PO (17:37)
[2019-09-26] MEDS ORDERED: Senokot TAB PO (17:38)
[2019-09-26] MEDS ORDERED: ALPHAGAN 0.2%5 ML EACH EYE (17:38)
[2019-09-26] MEDS ORDERED: TIMOPTIC 0.5 % O5 ML EACH EYE (17:38)
[2019-09-26 21:37] VITALS: BP 104/50
--- NOTE | 2019-09-27 00:06 | NUR ---
RECEIVED IN HALLWAY. WALKING TO HIS BEDROOM. CONFUSED. CALM AND COOPERATIVE WITH CARE AND ASSESSMENT. NO SIGNS OF AGGRESSION. REDIRECT AND REORIENT NEEDED. RESTING IN BED WITH EYES CLOSED. CONTINUE PLAN OF CARE
[2019-09-27 08:00] VITALS: BP 122/80
--- NOTE | 2019-09-27 12:32 | NUR ---
PATIENT COOPERATIVE WITH PLAN OF CARE. PATIENT DISCHARGED IN C/O [place] STAFF, CALM, PLEASANT MOOD. PERSONAL BELONGINGS RETURNED TO PATIENT. REPORT CALLED PER CHARGE NURSE.
--- NOTE | 2019-09-27 12:52 | PN ---
PATIENT:AMBAR FLORES MEDICAL RECORD: [id number] LOCATION:[facility] ADMISSION DATE: 09/05/19 PROGRESS NOTE DATE OF SERVICE: 09/26/2019 SUBJECTIVE: The patient's case was discussed with staff. He has no new complaints. OBJECTIVE: The patient is in good behavioral control with poor insight about his condition. He is tolerating his medicines well. ASSESSMENT: Vascular dementia. PLAN: I anticipate the patient can be transitioned out of the hospital tomorrow. His long-term prognosis is guarded. Followup will be with his primary care physician. TRANSINT:[id number] Voice Confirmation ID: [id number] DOCUMENT ID: [id number] WYATT VELASQUEZ MD at 1252 CC: [id number] DICTATION DATE: 09/26/191735 RADIO PROGRAM DIRECTOR: 09/27/19 0137 DIS IN 09/27/19 [facility] [address] [place] [address]
--- NOTE | 2019-09-28 12:02 | PN ---
PATIENT:AMBAR FLORES MEDICAL RECORD: [id number] LOCATION:[facility] ADMISSION DATE: 09/05/19 PROGRESS NOTE DATE OF SERVICE: 09/27/2019 SUBJECTIVE: The patient's case was discussed with staff. He has no new complaint. OBJECTIVE: The patient is disorganized with severe short-term memory impairment, but his mood is euthymic and he has certainly not been aggressive or disruptive in any way. ASSESSMENT: Vascular dementia. PLAN: The patient will be transitioned out of the hospital today. Long-term prognosis is guarded. TRANSINT:[id number] Voice Confirmation ID: [id number] DOCUMENT ID: [id number] WYATT VELASQUEZ MD at 1202 CC: [id number] DICTATION DATE: 09/27/19 1313 MACHINE FASTENER: 09/27/19 2308 DIS IN 09/27/19 [id number] [place] [address]
--- NOTE | 2019-09-30 14:05 | DS ---
PATIENT:AMBAR FLORES :49 MEDICAL RECORD: [id number] DISCHARGE SUMMARY ADMISSION DATE: 09/05/19 DISCHARGE DATE: 09/27/19 IDENTIFYING DATA: The patient is 74 years old and he was admitted to the hospital on a voluntary basis because of aggression. The patient lives in the [facility]. He has a known history of dementia. He has been aggressive with the staff and refusing to take his medications. He is angry, impaired, argumentative, and clearly demented. HOSPITAL COURSE: The patient was admitted to the hospital for a comprehensive medical, psychological, and social evaluation. He was found to be demented. The type of dementia was believed to be vascular in nature and the dementia was quite advanced. He also has a history of alcohol abuse. He was treated with various combinations of mood stabilizing and memory enhancing medications with a great deal of difficulty in stabilizing his behaviors, but eventually a reasonable compromise between medication side effects and medication desired effects was achieved and he was subsequently transitioned back to the [facility]. DISCHARGE DIAGNOSES: AXIS I: 1. Major vascular neurocognitive disorder. 2. History of alcohol abuse. AXIS II: None. AXIS III: Hypertension, diabetes, hypercholesterolemia. AXIS IV: Moderate stressors. AXIS V: Global assessment of functioning is 35. PLAN: At the time of discharge, the patient was in good behavioral control. He had no evidence of acute or direct dangerousness. His cognitive impairment had improved slightly, but he was still severely impaired overall. His long-term prognosis is guarded as his condition is degenerative in nature. He is to have followup with his primary care [facility] physician. TRANSINT:[id number] Voice Confirmation ID: [id number] DOCUMENT ID: [id number] WYATT VELASQUEZ MD at 1405 CC: [id number] DICTATION DATE: 09/29/19 1356 ROSS LIFT OPERATOR: 09/30/19 0610 DIS IN 09/27/19 [id number] [place] [address]
== END 2019-09-27 12:35 | disposition home or self-care (01) | DRG 57 ==
LOC: D.PSYCH 16:14
PROVIDERS: Family Medicine; ADMIT Psychiatry & Neurology Psychiatry; ATTEND Psychiatry & Neurology Psychiatry
DX: G30.9 Alzheimer's disease, unspecified (principal); F02.81 Dementia in other diseases classified elsewhere, unspecified severity, with behavioral disturbance; N39.0 Urinary tract infection, site not specified; I10 Essential (primary) hypertension; E11.9 Type 2 diabetes mellitus without complications; E78.5 Hyperlipidemia, unspecified; I25.10 Atherosclerotic heart disease of native coronary artery without angina pectoris; H40.9 Unspecified glaucoma; K59.00 Constipation, unspecified; E53.8 Deficiency of other specified B group vitamins; K21.9 Gastro-esophageal reflux disease without esophagitis; R26.9 Unspecified abnormalities of gait and mobility; R05 Cough; D50.9 Iron deficiency anemia, unspecified

== ENCOUNTER 2020-07-17 00:09 | Emergency (ER) | payer MEDICARE, BC ==
[2019-09-06 10:13] VITALS: Ht 165.1 cm; Wt 68.2 kg
[~2020-07-17] VITALS: Ht 165.1 cm; Wt 68.2 kg
[~2020-07-17 00:09] MED LIST changes: +ALPHAGAN 0.2%5 ML EACH EYE; +FERROUS SULFAT325 MG PO; +NAMENDA10 MG PO; +RisperDAL PO; +Senokot TAB PO; +TIMOPTIC 0.5 % O5 ML EACH EYE
[2020-07-17 01:01] LABS: BASOPHILS 0.2 % (0-2); EOSINOPHILS 0.2 % (0-7); HEMATOCRIT 38.4 % (42.0-54.0); HEMOGLOBIN 13.1 g/dL (13.5-17.5); IMMATURE GRANULOCYTES 0.4 % (0-5); MCHC 34.1 g/dL (31.0-37.0); MCV 87.9 fL (80.0-100.0); MEAN PLATELET VOLUME 11.7 fL (7.4-10.4); NEUTROPHILS 70.2 % (40-80); RBC 4.37 10x6/uL (4.20-6.10); RDW 13.5 % (11.5-14.5)
[2020-07-17 01:06] LABS: PLATELET COUNT 157 10x3/uL (130-400)
[2020-07-17 01:21] LABS: CALC OSMOLALITY 274 mosm/kg (275-300); CALCIUM 8.2 mg/dL (8.5-10.1); CARBON DIOXIDE 28.9 mmol/L (21.0-32.0); CHLORIDE - SERUM 104 mmol/L (98-107); CREATININE - SERUM 0.7 mg/dL (0.6-1.3); GLUCOSE 102 mg/dL (74-106); POTASSIUM - SERUM 3.2 mmol/L (3.5-5.1); SODIUM 138 mmol/L (136-145); UREA NITROGEN 10 mg/dL (7-18); eGFR NON AFRICAN AMERICAN > 90 mL/min (90-120)
[2020-07-17 01:39] LABS: ALBUMIN 2.8 g/dL (3.4-5.0); ALKALINE PHOSPHATASE 57 U/L (30-120); ALT (SGPT) 27 U/L (10-68); BILIRUBIN - TOTAL 0.74 mg/dL (0.2-1.3); CKMB 3.4 U/L (0.0-3.6); CREATINE KINASE 639 UL (21-232); MAGNESIUM - SERUM 1.7 mg/dL (1.8-2.4)
[2020-07-17 01:42] LABS: TROPONIN-I < 0.017 ng/mL (0.000-0.060)
[2020-07-17 04:06] VITALS: BP 104/57
== END 2020-07-17 03:30 ==
LOC: D.ER 00:09
PROVIDERS: Family Medicine
DX: U07.1 COVID-19 (principal); F03.90 Unspecified dementia, unspecified severity, without behavioral disturbance, psychotic disturbance, mood disturbance, and anxiety; E11.9 Type 2 diabetes mellitus without complications; I10 Essential (primary) hypertension; Z95.1 Presence of aortocoronary bypass graft; K21.9 Gastro-esophageal reflux disease without esophagitis; Z79.84 Long term (current) use of oral hypoglycemic drugs

== ENCOUNTER 2020-08-27 23:06 | Emergency (ER) | payer MEDICARE, BC ==
[~2020-08-27] VITALS: Ht 165.1 cm; Wt 81.8 kg
[2020-08-27 23:08] VITALS: Ht 165.1 cm; Wt 81.8 kg
[2020-08-28 02:21] VITALS: BP 113/50
== END 2020-08-28 02:06 | disposition home or self-care (01) ==
LOC: D.ER 23:06
DX: S00.03XA Contusion of scalp, initial encounter (principal); F03.90 Unspecified dementia, unspecified severity, without behavioral disturbance, psychotic disturbance, mood disturbance, and anxiety; W19.XXXA Unspecified fall, initial encounter; Y93.9 Activity, unspecified; Y92.9 Unspecified place or not applicable; E11.9 Type 2 diabetes mellitus without complications; I10 Essential (primary) hypertension; Z95.1 Presence of aortocoronary bypass graft; K21.9 Gastro-esophageal reflux disease without esophagitis; Z79.84 Long term (current) use of oral hypoglycemic drugs